=== PATIENT | male | born 1940 | race Caucasian/White ===

== ENCOUNTER 2020-08-30 14:00 | Outpatient (CLI) | payer MEDICARE, MEDICAID, SELFPAY ==
--- NOTE | 2020-08-30 16:53 | WPDPFTINT ---
PFT Procedure Performed PFT Procedure Performed Plethysmography (Lung Vol) Diffusing Cap (DLCO) Flow Vol Loop Spirometry w/o Bronchodil PFT Interpretation This is a pulmonary function test with spirometry, plethysmography and diffusing capacity. The test was performed and results interpreted in accordance with the 2019 and 2005 ATS/ERS Task Force guidelines respectively using the Global Lung Function Initiative-2012 reference equations. Patient demonstrated good effort and cooperation. Reproducibility criteria were met. The quality of the spirometry maneuver was Grade B. Findings: Spirometry: There is decreased maximal expiratory airflow at low lung volumes with a mildly concaved expiratory flow tracing. The FVC is 2.57 L, 63% predicted. The FEV1 is 1.83 L, 61% predicted. The FEV1: FVC ratio 71%. Plethysmography: The total lung capacity is 4.38 L, 61% predicted. The functional residual capacity is 2.63 L, 67% predicted. The residual volume is 1.82 L, 68% predicted. Diffusing capacity: The absolute diffusion capacity is 10.9, 44% predicted. The diffusing capacity corrected for alveolar volume is 3.20, 89% predicted. Impression: There is a combined obstructive and restrictive ventilatory abnormality. There are no guidelines to assign the severity of obstruction and restriction with a combined abnormality. In my opinion, given the mildly concave expiratory flow tracing, normal FEV1:FVC ratio and moderate restrictive abnormality, I would state there is a mild obstructive abnormality and a moderate restrictive abnormality resulting in a moderately decreased FEV1. The diffusing capacity is moderately decreased but normalizes when corrected for alveolar volume. There are no prior studies for comparison.
== END 2020-08-30 14:01 | disposition home or self-care (01) ==
PROVIDERS: PCP Family Medicine Adolescent Medicine; Visit Provider Internal Medicine Cardiovascular Disease
DX: R06.02 Shortness of breath (principal); Z72.0 Tobacco use; R94.2 Abnormal results of pulmonary function studies
CPT/HCPCS: 94375; 94726; 94729

== ENCOUNTER 2021-01-14 10:02 | Inpatient (IN) | payer MEDICARE, MEDICAID, SELFPAY ==
[2021-01-14] VITALS (21 sets, daily range): BP systolic 113–185; BP diastolic 71–133; PULSE 63–91; RESP 17–30; TEMP 36.4–36.8; O2SAT 90–98; BMI 34.7
--- NOTE | ~2021-01-14 | XR_ITS ---
EXAMINATION: XR chest 2V DATE: 01/14/2021 10:26 INDICATION: Shortness of breath and productive cough TECHNIQUE: frontal and lateral views of the chest were obtained. COMPARISON: Chest radiograph dated 06/05/2010 FINDINGS: Interstitial and airspace opacities in the bilateral mid and lower lung zones. Small left pleural eff usion. No pneumothorax. Cardiomegaly. Median sternotomy wires and mediastinal surgical clips are seen , likely from prior coronary artery bypass grafting. Moderate thoracic spondylosis. IMPRESSION: 1. Bilateral interstitial and airspace opacities in the mid to lower lungs most likely congestive hea rt failure related mild pulmonary edema. Differential includes less likely pneumonia. 2. Small left pleural effusion. 3. Cardiomegaly. Reviewed, dictated and finalized at location A. IMPRESSION: 1. Bilateral interstitial and airspace opacities in the mid to lower lungs most likely congestive heart failure related mild pulmonary edema. Differential inc ludes less likely pneumonia. 2. Small left pleural effusion. 3. Cardiomegaly.
--- NOTE | 2021-01-14 10:04 | ECG_ITS ---
Measurements Intervals [place] Rate: 76 P: 41 ME: 159 QRS: 262 QRSD: 143 T: 1 QT: 418 QTc: 471 Interpretive Statements SINUS RHYTHM ATRIAL AND VENTRICULAR PREMATURE COMPLEXES RIGHT AXIS DEVIATION RIGHT BUNDLE BRANCH BLOCK CONSIDER INFERIOR INFARCT, AGE INDETERMINATE BASELINE ARTIFACT- I, II, III, AVR, AVL, AVF, V3 ABNORMAL ECG Electronically Signed On 01-14-2021 12:15:08 CDT by Bennie Esteves D.O.
--- NOTE | 2021-01-14 10:05 | ED.SOB ---
HPI - SOB/Dyspnea General Chief Complaint: Shortness of Breath/Dyspnea Stated Complaint: SOB Time Seen by Provider: 01/14/21 10:04 Source: patient Mode of arrival: ambulatory Limitations: no limitations History of Present Illness HPI Narrative: The patient is a 80 yo male with a history of CAD, previous STEMI, 4 vessel CABG, who presents to the ER for evaluation of chest pain and dyspnea. Patient with dyspnea worsening over the course of this morning, which prompted his visit today. He denies fever, chills or productive cough. He also reports lower extremity swelling. No vomiting. The chest pain is described as a mild chest pain. Does not increase with exertional activities or movement. Pt does smoke cigarettes daily, but states that he quit yesterday. He denies any episodes of recent, severe chest pain. No diaphoresis, shoulder, jaw or neck pain. Pain has been presenting throughout the morning. No history of COVID per family at bedside. Pt denies history of COPD diagnosis. No history of asthma. Related Data Home Medications Medication Instructions Recorded Confirmed aspirin [Adult Aspirin] 81 mg PO DAILY 01/14/21 01/14/21 carvedilol 12.5 mg PO BID 01/14/21 01/14/21 [id number]-lutein 1 tablet PO DAILY 01/14/21 01/14/21 [Complete Multi 50+] omeprazole 40 mg PO DAILY 01/14/21 01/14/21 simvastatin 80 mg PO HS 01/14/21 01/14/21 Allergies Allergy/AdvReac Type Severity Reaction Status Date / Time No Known Drug Allergies Allergy Mild Verified 08/21/20 12:55 Review of Systems Review of Systems: CONSTITUTIONAL: Denies fever, chills, or sweats. EYES: Denies visual changes, redness, or discharge. ENT: Denies rhinorrhea, congestion, sore throat, or otalgia. CARDIOVASCULAR: Reports chest pain, reports lower leg edema RESPIRATORY: Denies productive cough, reports dyspnea at rest GASTROINTESTINAL: Denies abdominal pain, nausea, vomiting, or diarrhea. GENITOURINARY: Denies dysuria or hematuria. SKIN: Denies rash or itching. MUSCULOSKELETAL: Denies back pain, joint pain, or myalgia. NEUROLOGIC: Denies headache, numbness, or weakness. [facility] Family History Family History (System 08/21/20 @ 12:55 by Aster Rhodes) Mother Family history of malignant neoplasm of breast in first degree relative Father Family history of heart disease in male family member before age 55 Social History Social History (Updated 01/14/21 @ 10:59 by Anjana Stoner MD) Smoking packs per day: 1 Smoking cigarettes per day: 20.0 Years smoked: 49 Smoking pack-years: 49.00 Smoking status: Current every day smoker Tobacco type: cigarettes Second hand tobacco smoke exposure: Yes Smoking end date: 01/13/21 Alcohol intake: current Drinks per week: 7 Substance use: never Spiritual care concerns: No (ROMAN CATHOLIC) Exam Narrative: GENERAL: Awake, alert, conversant HEAD: Normocephalic, atraumatic. EYES: PERRLA and EOMI. ENT: Nares clear, no rhinorrhea or epistaxis. Mucous membranes moist. NECK: Supple. CHEST: No respiratory distress, mild use of accessory muscles to breathe, decreased breath sounds at the bases, with faint expiratory wheezing HEART: Regular rate, sinus rhythm ABDOMEN:Non distended, non tender EXTREMITIES: Normal range of motion. Bilateral pitting edema, mid shins 2+ SKIN: Warm, dry, no rash. NEURO:No focal deficits. Alert and oriented x3 Course Vital Signs Vital signs: Vital Signs Temperature 36.8 C 01/14/21 10:00 Pulse Rate 67 01/14/21 10:00 Respiratory Rate 20 01/14/21 10:00 Blood Pressure 185/102 H 01/14/21 10:00 Pulse Oximetry 96 01/14/21 10:00 Temperature 36.4 C L 01/14/21 13:20 Pulse Rate 80 01/14/21 13:20 Respiratory Rate 22 H 01/14/21 13:20 Blood Pressure 157/75 H 01/14/21 13:20 Pulse Oximetry 94 01/14/21 13:20 MDM - SOB/Dyspnea MDM Narrative Medical decision making narrative: Patient is a 80-year-old male with an extensive cardiac his
[2021-01-14 10:19] LABS: Basophils Percent Auto 0.5 % (0.2-1.2); Eosinophils Absolute Auto 0.4 K/mm3 (0-0.3); Eosinophils Percent Auto 4.9 % (0-4.4); Hemoglobin 12.8 g/dL (14.0-18.0); Immature Granulocyte Absolute 0.01 K/mm3 (0.00-0.031); Immature Granulocyte Percent A 0.1 % (0-0.5); Lymphocytes Absolute Auto 2.22 K/mm3 (0.9-3.2); Lymphocytes Percent Auto 29.4 % (18.3-44.2); Mean Corpuscular HGB Conc 33.7 g/dl (32-36); Mean Corpuscular Hemoglobin 29.7 pg (26-34); Mean Corpuscular Volume 88.2 fl (80-100); Mean Platelet Volume 10.2 fl (7.4-10.4); Monocytes Absolute Auto 0.8 K/mm3 (0.1-0.6); Monocytes Percent Auto 10.3 % (2.6-8.5); Neutrophils Absolute Auto 4.1 K/mm3 (1.3-6.7); Neutrophils Percent Auto 54.8 % (45.5-73.1); Platelet Count Result 186 k/mm3 (150-375); Red Blood Count 4.31 M/mm3 (4.6-6.20); White Blood Count 7.6 K/mm3 (4.5-10.0)
[2021-01-14 10:29] LABS: Anion Gap 7 mmol/L (8-16); Blood Urea Nitrogen 8 mg/dL (9-20); Calcium 8.4 mg/dL (8.4-10.2); Carbon Dioxide 27 mmol/L (22-30); Chloride 87 mmol/L (98-107); Estimated CRCL calculation 128 ml/min; Estimated Glomerular Filt Rate > 60; Glucose 120 mg/dL (65-110); INR 1.1; Potassium 4.6 mmol/L (3.4-5.0); Prothrombin Time 13.8 Seconds (11.1-14.7); Sodium 121 mmol/L (137-145)
[2021-01-14 10:30] LABS: Partial Thromboplastin Time 32.6 SECONDS (22.3-36.8)
[2021-01-14] MEDS: IPRATROPIUM BR 0.02% INH SOLN 0.5 MG/2.5 ML VIAL 1 MG INHALATION (11:15)
[2021-01-14] MEDS: ALBUTEROL SULFATE NEB 2.5 MG/0.5 ML INH 5 MG INHALATION ×3 (11:15→21:00)
[2021-01-14] MEDS: methylPREDNISolone SOD SUCC 125 MG VIAL IV PUSH (11:19)
[2021-01-14] MEDS: FUROSEMIDE INJ 40 MG/4 ML VIAL 20 MG IV PUSH (11:19)
--- NOTE | 2021-01-14 11:19 | PC.NURSE ---
chem, Sharon, Kam I and BNP
[2021-01-14] MEDS: SODIUM CHLORIDE 0.9% IV 1,000 ML 150 ML IV CONT (11:20)
[2021-01-14 11:41] LABS: NT Pro B Type Natriuretic Pept 2740 pg/mL (5-100); Troponin I < 0.012 ng/mL (0.000-0.034)
--- NOTE | 2021-01-14 13:24 | ADMGEN ---
This patient, Santosh Gonzalez Jr., was admitted to IMU Room 209-01 on 01/14/21 at 1320. Patient/family oriented to hospital policies and general routines including ID bracelet, bed and alarms, visiting hours, pain management, procedures, bathroom and other care routines, personal items, smoking policy, room service/diet, and visiting hours. Information on how to activate the Rapid Response Team has been discussed. Patient/Family are encouraged to report perceived risks to care and to ask questions if they do not understand what they are told or what they should do.
[2021-01-14] MEDS: IPRATROPIUM BR 0.02% INH SOLN 0.5 MG/2.5 ML VIAL INHALATION ×2 (14:16→20:59)
--- NOTE | 2021-01-14 16:06 | PM.IMHP ---
H&P: HPI History of Present Illness Date/Time: 01/14/21 16:06 this is a 80-year-old male patient who has a past medical history of coronary artery disease with a 4 vessel CABG after a STEMI. The patient is not sure if he has ever been diagnosed with congestive heart failure. He also has a history of COPD. The patient stated that he smoked a pack a cigarettes for many years and then cut it down to half a pack of cigarettes. The patient stated that he quit smoking yesterday. The patient does not wear oxygen at home. The patient came into the emergency room today to be evaluated for chest pain and dyspnea. The patient stated that his chest pain is similar to when he had his STEMI although it is much less. The patient stated that he was short of breath with exertion. He stated that he can lie flat. He had no diaphoresis or any radiation of pain to his children jaw or neck. He has no history of COVID. He has no fever chills no nausea vomiting. Chest x-ray was read as bilateral interstitial and airspace opacities in the mid to lower lungs most likely congestive heart failure related mild pulmonary edema differential includes least likely pneumonia. Small left pleural effusion. Cardiomegaly. His H&H is 12.8 and 38.0. His sodium is 121. Initially IV fluids were started and I did stop them. Patient's creatinine 0.50. His glucose was 120. His BNP is 2740. Patient was given DuoNebs, Solu-Medrol and IV Lasix. The patient is being admitted to inpatient services on the date of service of 01/14/2021. Chief Complaint: Shortness of breath Review of Systems Review of Systems: All systems reviewed & are unremarkable except as noted in HPI and below Constitutional: Constitutional: Reports as per HPI and Reports no additional constitutional complaints Eyes: Eyes: Reports as per HPI and Reports no additional eye complaints ENT: Reports system reviewed and no additional complaints, except as documented and Reports Normal hearing present Cardiovascular: Cardiovascular: Reports no additional cardiovascular complaints Respiratory: Respiratory: Reports no additional respiratory complaints and Reports no additional respiratory complaints Gastrointestinal: Gastrointestinal: Reports as per HPI and Reports no additional gastrointestinal complaints Musculoskeletal: Musculoskeletal: Reports no additional musculoskeletal complaints Integumentary/Breasts: Skin/Breast: Reports system reviewed and no additional complaints, except as docu and Reports as per HPI Neurologic: Reports system reviewed and no additional complaints, except as documented, Reports as per HPI and Reports Normal hearing present Psychiatric: Psychiatric: Reports no additional psychiatric complaints and Reports as per HPI Endocrine: Endocrine: Reports no additional endocrine complaints Hematologic/Lymphatic: Hematologic/Lymphatic: Reports no additional hematologic/lymphatic complaints Allergic/Immunologic: Allergic/Immunologic: Reports no additional allergic/immunologic complaints [facility] Past Medical History Medical History (Updated 01/14/21 @ 16:22 by Willow Perez NP) Acute exacerbation of chronic obstructive airways disease CHF (congestive heart failure), NYHA class I Depression Hyperlipidemia Hypertension Surgical History Surgical History (Updated 01/14/21 @ 16:22 by Willow Perez NP) History of tonsillectomy S/P CABG x 4 Family History Family History Mother Family history of malignant neoplasm of breast in first degree relative Father Family history of heart disease in male family member before age 55 Acute myocardial infarction Unknown Cerebrovascular accident Social History Social History (Updated 01/14/21 @ 16:23 by Willow Perez NP) Social History: The patient stated that he smoked a pack a cigarettes for many years and then he went down to half a pack. The patient stated that he quit smoki
[2021-01-14] MEDS: carvediloL 12.5 MG TABLET PO (17:20)
[2021-01-14 17:39] LABS: Troponin I < 0.012 ng/mL (0.000-0.034)
[2021-01-14 20:21] LABS: Anion Gap 10 mmol/L (8-16); Blood Urea Nitrogen 10 mg/dL (9-20); Calcium 8.3 mg/dL (8.4-10.2); Carbon Dioxide 27 mmol/L (22-30); Chloride 86 mmol/L (98-107); Estimated CRCL calculation 128 ml/min; Estimated Glomerular Filt Rate > 60; Glucose 149 mg/dL (65-110); Potassium 4.1 mmol/L (3.4-5.0); Sodium 123 mmol/L (137-145)
[2021-01-14] MEDS: SIMVASTATIN 20 MG TABLET 80 MG PO (20:29)
[2021-01-14] MEDS: methylPREDNISolone SOD SUCC 125 MG VIAL 80 MG IV PUSH (20:30)
[2021-01-14 20:33] LABS: Troponin I < 0.012 ng/mL (0.000-0.034)
[2021-01-14 23:35] LABS: Troponin I 0.013 ng/mL (0.000-0.034)
[2021-01-15] VITALS (22 sets, daily range): BP systolic 118–153; BP diastolic 62–90; PULSE 58–122; RESP 12–24; TEMP 36.4–36.8; O2SAT 88–95
--- NOTE | 2021-01-15 | ECHO_ITS ---
Patient Info Name: Santosh Gonzalez Age: 80 years : 1940 Gender: Male Ht: 71 in Wt: 248 lbs BSA: 2.41 m2 HR: 81 bpm BP: 122 / 69 mmHg Heart Rhythm: Sinus Rhythm Exam Date: 01/15/2021 10:13 AM Exam Location: [facility] Patient Status: Inpatient Admit Date: 01/14/2021 Staff Ordering Physician: Willow Perez NP Digital Camera Technician: Boone Rosas RDCS, RT Attending Provider: Viviana Foster PA-C Referring Physician: Chris CHAVEZ; Exam Type: CA echo doppler color flow Study Info Indications J81.1 - Chronic pulmonary edema Strain analysis performed. Complete two-dimensional, color flow and Doppler transthoracic echocardiogram is performed. Summary 1. Complete two-dimensional, color flow and Doppler transthoracic echocardiogram is performed. 2. Normal left ventricular size with mild concentric hypertrophy. Good systolic function of all segments with no segmental wall motion abnormalities and with an ejection fraction of 60-65% visually. Grade 2 diastolic dysfunction is present. The global longitudinal strain is mildly diminished at -16%, consistent with mild systolic dysfunction. 3. Left atrial chamber dimension is moderately enlarged. 4. Right atrial chamber dimension is mildly enlarged. 5. There is mild to moderate mitral valve regurgitation. 6. There is moderate tricuspid valve regurgitation. 7. Moderate pulmonary hypertension, estimated pulmonary arterial systolic pressure is 55 mmHg. 8. Dilated inferior vena cava with >50% collapse upon inspiration consistent with elevated right atrial pressure, 10 mmHg. 9. The rhythm is probably normal sinus rhythm with frequent APCs (versus atrial fibrillation). Left Ventricle Left ventricular chamber dimension is normal. Left ventricular systolic function is normal, estimated at 60-65%. There is mildly increased left ventricular wall thickness. Left ventricular septal wall motion is normal. The left ventricular diastolic function is grade II diastolic dysfunction. Global longitudinal strain is mildly elevated at -16 %. Right Ventricle Right ventricular chamber dimension is not well visualized. Right ventricular systolic function is normal. Left Atria Left atrial chamber dimension is moderately enlarged. Right Atria Right atrial chamber dimension is mildly enlarged. Aortic Valve The aortic valve is trileaflet. There is moderate aortic valve sclerosis. There is no aortic valve stenosis. There is no aortic valve regurgitation. Pulmonic Valve The pulmonic valve is normal. There is no pulmonic valve stenosis. There is trace pulmonic regurgitation. Mitral Valve The mitral valve has normal leaflets. There is no mitral valve stenosis. There is mild to moderate mitral valve regurgitation. The mitral valve annulus is moderately calcified. Tricuspid Valve The tricuspid valve leaflets are normal. There is no significant tricuspid valve stenosis. There is moderate tricuspid valve regurgitation. Moderate pulmonary hypertension, estimated pulmonary arterial systolic pressure is 55 mmHg. Pericardium/Pleural The pericardium appears normal. There is no pericardial effusion. Inferior Vena Cava Dilated inferior vena cava with >50% collapse upon inspiration consistent with elevated right atrial pressure, 10 mmHg. Aorta The aortic root size at the sinus of Valsalva is normal. The prox ascending aorta size is normal. Left Ventricular Outflow Tract
[2021-01-15] MEDS: ALBUTEROL SULFATE NEB 2.5 MG/0.5 ML INH 5 MG INHALATION ×4 (02:03→21:05)
[2021-01-15] MEDS: IPRATROPIUM BR 0.02% INH SOLN 0.5 MG/2.5 ML VIAL INHALATION ×4 (02:03→21:05)
[2021-01-15 05:10] LABS: Hematocrit 36.1 % (42.0-52.0); Hemoglobin 12.4 g/dL (14.0-18.0); Immature Granulocyte Absolute 0.01 K/mm3 (0.00-0.031); Immature Granulocyte Percent A 0.2 % (0-0.5); Lymphocytes Absolute Auto 1.13 K/mm3 (0.9-3.2); Lymphocytes Percent Auto 25.5 % (18.3-44.2); Mean Corpuscular HGB Conc 34.3 g/dl (32-36); Mean Corpuscular Hemoglobin 29.2 pg (26-34); Mean Corpuscular Volume 85.1 fl (80-100); Mean Platelet Volume 10.3 fl (7.4-10.4); Monocytes Absolute Auto 0.1 K/mm3 (0.1-0.6); Monocytes Percent Auto 1.4 % (2.6-8.5); Neutrophils Absolute Auto 3.2 K/mm3 (1.3-6.7); Neutrophils Percent Auto 72.9 % (45.5-73.1); Platelet Count Result 198 k/mm3 (150-375); Red Blood Count 4.24 M/mm3 (4.6-6.20); Red Cell Distribution Width 13.7 % (11.5-14.5); White Blood Count 4.4 K/mm3 (4.5-10.0)
[2021-01-15] MEDS: methylPREDNISolone SOD SUCC 125 MG VIAL 80 MG IV PUSH ×3 (05:19→21:02)
[2021-01-15 05:21] LABS: Lactic Acid Reflex 0.9 mmol/L (0.7-2.1)
[2021-01-15 05:23] LABS: Alanine Aminotransferase 21 U/L (4-50); Albumin Level 3.9 g/dL (3.5-5.1); Alkaline Phosphatase 65 U/L (38-126); Anion Gap 7 mmol/L (8-16); Aspartate Amino Transferase 39 U/L (17-59); Bilirubin,Total 0.5 mg/dL (0.2-1.3); Blood Urea Nitrogen 11 mg/dL (9-20); Calcium 8.5 mg/dL (8.4-10.2); Carbon Dioxide 29 mmol/L (22-30); Chloride 88 mmol/L (98-107); Estimated CRCL calculation 108 ml/min; Estimated Glomerular Filt Rate > 60; Glucose 149 mg/dL (65-110); Lactate Dehydrogenase 446 U/L (313-618); Lipase 46 U/L (23-300); Magnesium 1.4 mg/dL (1.6-2.3); Potassium 4.2 mmol/L (3.4-5.0); Sodium 124 mmol/L (137-145)
[2021-01-15 07:23] LABS: Thyroid Stimulating Hormone Reflex 0.245 uIU/mL (0.465-4.68)
[2021-01-15] MEDS: carvediloL 12.5 MG TABLET PO ×2 (08:07→17:09)
[2021-01-15] MEDS: PANTOPRAZOLE 40 MG TABLET PO ×2 (08:07→17:09)
[2021-01-15] MEDS: ASPIRIN 81 MG CHEWABLE TABLET PO (08:07)
[2021-01-15] MEDS: OPTI-GEN TAB 1 TABLET PO (08:07)
[2021-01-15] MEDS: ENOXAPARIN 40 MG/0.4 ML SYRINGE SUB-Q (08:10)
[2021-01-15] MEDS: FUROSEMIDE INJ 40 MG/4 ML VIAL IV PUSH (08:13)
[2021-01-15] MEDS: MAGNESIUM SULFATE 3GM/D5W100ML 3 GM/100 ML BAG IVPB (10:33)
[2021-01-15 12:25] LABS: Sodium 124 mmol/L (137-145)
[2021-01-15 13:00] LABS: Free T4 Free Thyroxine Reflex 1.48 ng/dL (0.78-2.19)
--- NOTE | 2021-01-15 16:27 | PM.IMPN ---
Progress Note: A&P Assessment and Plan (1) CHF (congestive heart failure), NYHA class I: Code(s): I50.9 - Heart failure, unspecified Status: Chronic Assessment and Plan: Presented with bilateral interstitial airspace a paced these most likely due to CHF with mild pulmonary edema and small left pleural effusion. BNP 2700 Echo reviewed which showed EF 60-65% and grade 2 diastolic dysfunction Continue diuresis with IV Lasix Monitor intake and output. Weigh daily Heart healthy diet Continue carvedilol Cardiology has been consulted and input is appreciated (2) Acute exacerbation of chronic obstructive airways disease: Code(s): J44.1 - Chronic obstructive pulmonary disease with (acute) exacerbation Status: Chronic Assessment and Plan: Noted to have diffuse wheezing on admission. Improving today. Continue IV Solu-Medrol Albuterol and ipratropium nebs q.6 Do not feel antibiotics are warranted at this time. No significant sputum changes. (3) Hyperlipidemia: Code(s): E78.5 - Hyperlipidemia, unspecified Status: Chronic Assessment and Plan: LFTs within normal limits Continue simvastatin (4) Hypertension: Code(s): I10 - Essential (primary) hypertension Status: Chronic Assessment and Plan: Blood pressure reviewed and has been generally well controlled. Slightly elevated on presentation but has improved with diuresis. Last BP 118/63 Continue carvedilol and furosemide Monitor BP trends (5) Acute hyponatremia: Code(s): E87.1 - Hypo-osmolality and hyponatremia Status: Acute Assessment and Plan: Sodium low at presentation at 121. Maybe due to hypervolemia. Sodium has slowly improved with fluid restriction and diuresis. Sodium remaining stable at 124 today Monitor BMP closely Continue with fluid restriction (6) Coronary artery disease: Code(s): I25.10 - Atherosclerotic heart disease of [place] coronary artery without angina pectoris Status: Acute Assessment and Plan: No acute issues at this time Continue aspirin, carvedilol, statin (7) Hypomagnesemia: Code(s): E83.42 - Hypomagnesemia Status: Acute Assessment and Plan: Magnesium 1.4 today Supplement with IV magnesium sulfate Monitor Mag levels (8) Abnormal TSH: Code(s): R79.89 - Other specified abnormal findings of blood chemistry Status: Acute Assessment and Plan: TSH is slightly low with normal T4 T3 pending He will need outpatient follow-up and repeat TSH in 4-6 weeks Subjective Date/time seen: 01/15/21 16:27 Interval history: Date of service: 01/15/2021 Santosh Zhu is a 80-year-old male with a history of COPD, CHF, hyperlipidemia, hypertension, and depression who is seen in follow-up for dyspnea. He is feeling better today. He feels that his breathing is improved. He does endorse dyspnea on exertion. Denies conversational dyspnea. Denies orthopnea or PND. He has cough productive of white sputum with occasional reddish/pink streaks of blood. He denies wheezing. Denies chest pain. No palpitations. He stated this morning he felt like he had a panic attack and began feeling clammy and had trouble breathing. He is unsure what triggered this episode. He reports having 1 like this at home about 2 days ago as well. He tells me has been urinating frequently after starting Lasix. He also complains of pain in the left hip that he describes as a aching sensation. He attributes this to sciatica but denies back pain, buttock pain, or leg pain. No neuropathic pain symptoms. He denies fever, chills, dizziness, lightheadedness, or weakness. Review of Systems Review of Systems: All systems reviewed & are unremarkable except as noted in HPI and below Exam Narrative: The patient is a well-nourished, well-appearing 80-year-old male who is sitting up at the
--- NOTE | 2021-01-15 16:35 | PM.CNCAR ---
Assessment and Plan Assessment and plan (1) CHF (congestive heart failure), NYHA class I: Code(s): I50.9 - Heart failure, unspecified Status: Chronic Assessment and Plan: Patient has developed acute new onset diastolic heart failure, new onset. Doubt caused by ischemia or valve disease. He states he has been prescribed furosemide prn but the urinary frequency was intolerable so he stopped taking them. He feels improved with IV furosemide 40 mg daily. Echo EF 60-65% with diastolic dysfxn and mild/mod valve dz. Continue to diurese. Daily BMP When we send him home on diuretics perhaps we can compromise and have him take them every other day instead of daily. OK to transfer to Med-Surg floor (2) Acute exacerbation of chronic obstructive airways disease: Code(s): J44.1 - Chronic obstructive pulmonary disease with (acute) exacerbation Status: Chronic Assessment and Plan: Acute COPD exacerbation. Improving with nebulizers and steroids. Patient states he has decided to quit smoking completely. (3) Coronary artery disease: Code(s): I25.10 - Atherosclerotic heart disease of [place] coronary artery without angina pectoris Status: Acute Assessment and Plan: History of CAD, CABG 2009. Has some chest tightness on admission but Troponins negative, EKG without ischemic changes and no change c.t. 2015. Chest tightness was probably related to his wheezing and COPD. No need to evaluate CAD further at this time. Cont ASA, statin, BB. (4) Acute hyponatremia: Code(s): E87.1 - Hypo-osmolality and hyponatremia Status: Acute Assessment and Plan: Sodium 121 on admission, improving w/ diuretic tx. History of Present Illness History of Present Illness Consult date/time: 01/15/21 16:35 Consult reason: congestive heart failure Reason For Visit: hyponatremia,acute congestive heart failure Narrative: Santosh Freiberg is a 80 y.o. male kindly referred by the hospitalists for our advise and opinion regarding his CHF in consultation. History of CAD, previous STEMI, 3 vessel CABG, ongoing tobacco use. Date of service 01/15/2021: Mr Gonzalez presented to the ER for evaluation of chest pain and dyspnea. Patient with dyspnea worsening in the past 4 days, particularly the 2 days prior to admission. He had a cough and congestion, nocturia, and was feeling ?yudi lousy? and was scared. Chest discomfort/tightness was present, but not a big part of his symptomatology. He gained 5 lb, and had some edema. He admits that he did not take his furosemide 20 mg prn for edema; he is ?hard headed,? and they cause too much urinary frequency. The patient had a non-STEMI in 2009 followed by 3 vessel CABG in [facility] (RUFF to the Left anterior descending, SVG to the OM, SVG to the RCA ). At that time his EF was 30% but has normalized. He sees Dr. Avalos every 6 months with the next visit being in early January. He quit smoking just prior to admission. Review of Systems Constitutional: Constitutional: Reports fatigue Eyes: Eyes: Reports no additional eye complaints ENT: Denies Normal hearing present ( I am half deaf. ) Cardiovascular: Cardiovascular: Reports chest pain, Reports pedal edema, Reports leg edema, Reports lightheadedness and Denies palpitations Respiratory: Respiratory: Reports chest congestion, Reports cough, Reports dyspnea, Reports dyspnea on exertion and Reports wheezing Gastrointestinal: Gastrointestinal: Denies abdominal pain Genitourinary: Genitourinary: Denies dysuria and Reports urinary urgency (In frequency, nocturia) Musculoskeletal: Musculoskeletal: Reports back pain and Reports arthralgias Comments: Sciatica Integumentary/Breasts: Skin/Breast: Denies rash Neurologic: Denies confusion Psychiatric: Psychiatric: Reports no additional
--- NOTE | 2021-01-15 17:37 | PC.NURSE ---
On 01/15/21, the student, Stella FREIRE, provided care and completed [email or web address] documentation on this patient. I have reviewed the student's documentation and agree with the findings.
[2021-01-15] MEDS: SIMVASTATIN 20 MG TABLET 80 MG PO (21:02)
[2021-01-15 21:11] LABS: Sodium 125 mmol/L (137-145)
[2021-01-16] VITALS (13 sets, daily range): BP systolic 132–151; BP diastolic 70–107; PULSE 52–117; RESP 16–28; TEMP 36.5–37.1; O2SAT 90–94
[2021-01-16] MEDS: ALBUTEROL SULFATE NEB 2.5 MG/0.5 ML INH 5 MG INHALATION ×4 (02:43→21:02)
[2021-01-16] MEDS: IPRATROPIUM BR 0.02% INH SOLN 0.5 MG/2.5 ML VIAL INHALATION ×4 (02:44→21:02)
[2021-01-16 05:15] LABS: Hematocrit 37.2 % (42.0-52.0); Hemoglobin 12.2 g/dL (14.0-18.0); Mean Corpuscular HGB Conc 32.8 g/dl (32-36); Mean Corpuscular Hemoglobin 29.3 pg (26-34); Mean Corpuscular Volume 89.2 fl (80-100); Mean Platelet Volume 10.2 fl (7.4-10.4); Platelet Count Result 186 k/mm3 (150-375); Red Blood Count 4.17 M/mm3 (4.6-6.20); Red Cell Distribution Width 14.1 % (11.5-14.5); White Blood Count 8.5 K/mm3 (4.5-10.0)
[2021-01-16 05:24] LABS: Anion Gap 4 mmol/L (8-16); Blood Urea Nitrogen 16 mg/dL (9-20); Calcium 8.3 mg/dL (8.4-10.2); Carbon Dioxide 31 mmol/L (22-30); Chloride 90 mmol/L (98-107); Estimated CRCL calculation 94 ml/min; Estimated Glomerular Filt Rate > 60; Glucose 204 mg/dL (65-110); Magnesium 2.1 mg/dL (1.6-2.3); Potassium 4.3 mmol/L (3.4-5.0); Sodium 125 mmol/L (137-145)
[2021-01-16] MEDS: methylPREDNISolone SOD SUCC 125 MG VIAL 80 MG IV PUSH (06:19)
[2021-01-16 07:36] LABS: Total Triiodothyronine (T3) 0.68 NG/ML (0.97-1.69)
[2021-01-16] MEDS: carvediloL 12.5 MG TABLET PO ×2 (09:27→17:13)
[2021-01-16] MEDS: ENOXAPARIN 40 MG/0.4 ML SYRINGE SUB-Q (09:27)
[2021-01-16] MEDS: ASPIRIN 81 MG CHEWABLE TABLET PO (09:27)
[2021-01-16] MEDS: FUROSEMIDE INJ 40 MG/4 ML VIAL IV PUSH (09:27)
[2021-01-16] MEDS: PANTOPRAZOLE 40 MG TABLET PO ×2 (09:27→17:14)
[2021-01-16] MEDS: OPTI-GEN TAB 1 TABLET PO (09:28)
--- NOTE | 2021-01-16 12:52 | PM.PNCARD ---
Progress Note: A&P Assessment and Plan (1) CHF (congestive heart failure), NYHA class I: Code(s): I50.9 - Heart failure, unspecified Status: Chronic Assessment and Plan: Patient has developed acute new onset diastolic heart failure, new onset. Doubt caused by ischemia or valve disease. He states he has been prescribed furosemide prn but the urinary frequency was intolerable so he stopped taking them. Breathing and lower extremity edema have improved with IV furosemide. Continue to diurese -will shift from IV furosemide to oral today. Echo EF 60-65% with diastolic dysfxn and mild/mod valve dz. Daily BMP When we send him home on diuretics perhaps we can compromise and have him take them every other day instead of daily. OK to transfer to Med-Surg floor (2) Acute exacerbation of chronic obstructive airways disease: Code(s): J44.1 - Chronic obstructive pulmonary disease with (acute) exacerbation Status: Chronic Assessment and Plan: Acute COPD exacerbation. Improving with nebulizers and steroids. Patient states he has decided to quit smoking completely. (3) Coronary artery disease: Code(s): I25.10 - Atherosclerotic heart disease of [place] coronary artery without angina pectoris Status: Acute Assessment and Plan: History of CAD, CABG 2009. Has some chest tightness on admission but Troponins negative, EKG without ischemic changes and no change c.t. 2015. Chest tightness was probably related to his wheezing and COPD. No need to evaluate CAD further at this time. Cont ASA, statin, BB. (4) Acute hyponatremia: Code(s): E87.1 - Hypo-osmolality and hyponatremia Status: Acute Assessment and Plan: Sodium 121 on admission, improving w/ diuretic tx. Na 125 today. Subjective Date/time seen: 01/16/21 12:52 Cardiology follow up for CHF Date of service 01/16/2021: Complaining of some sciatic pain today. Other than that is feeling well. His breathing is much improved as well as his lower extremity swelling. He is sitting up at the edge of the bed getting washed up and is comfortable. I think it would be reasonable to discharge him tomorrow if he tolerates oral diuretics. Review of Systems Constitutional: Constitutional: Reports fatigue Eyes: Eyes: Reports no additional eye complaints ENT: Denies Normal hearing present ( I am half deaf. ) Cardiovascular: Cardiovascular: Reports chest pain, Reports pedal edema, Reports leg edema, Reports lightheadedness, Denies palpitations, Reports dyspnea and Reports dyspnea on exertion Respiratory: Respiratory: Reports chest congestion, Reports cough, Reports dyspnea, Reports dyspnea on exertion and Reports wheezing Gastrointestinal: Gastrointestinal: Denies abdominal pain Genitourinary: Genitourinary: Denies dysuria and Reports urinary urgency (In frequency, nocturia) Musculoskeletal: Musculoskeletal: Reports back pain and Reports arthralgias Integumentary/Breasts: Skin/Breast: Denies rash Neurologic: Denies Normal hearing present ( I am half deaf. ) and Denies confusion Psychiatric: Psychiatric: Reports no additional psychiatric complaints and Denies confusion Endocrine: Endocrine: Reports fatigue and Denies palpitations Allergic/Immunologic: Allergic/Immunologic: Reports wheezing Exam Const: General: comfortable and no acute distress; No confusion Orientation/consciousness: No confusion HENMT: Head: normal to inspection General nose exam: no epistaxis Mouth: Yes moist mucous membranes Eyes: EOM: EOMs intact bilaterally Neck: Neck: supple Thyroid: thyroid normal Resp: Auscultation: no rales, rhonchi and wheezes expiratory wheezes Cardio: Rate: regular rate Rhythm: regular rhythm Other: Occasional premature beat intact distal pulses Skin: General skin exam: normal color
--- NOTE | 2021-01-16 14:55 | P.PNIM_ITS ---
Progress Note: A&P Assessment and Plan (1) CHF (congestive heart failure), NYHA class I: Code(s): I50.9 - Heart failure, unspecified Status: Chronic Assessment and Plan: New onset. Presented with bilateral interstitial airspace opacities most likely due to CHF with mild pulmonary edema and small left pleural effusion. BNP 2700 * Echo reviewed which showed EF 60-65% and grade 2 diastolic dysfunction * Continue diuresis, transition to p.o. Lasix 40 mg b.i.d. * Monitor intake and output. Weigh daily * Heart healthy diet * Continue carvedilol * Appreciate cardiology consultation (2) Acute exacerbation of chronic obstructive airways disease: Code(s): J44.1 - Chronic obstructive pulmonary disease with (acute) exacerbation Status: Chronic Assessment and Plan: Noted to have diffuse wheezing on admission. Improving. * Continue IV Solu-Medrol, weaned to 40 mg IV q.8 * Albuterol and ipratropium nebs q.6 * Do not feel antibiotics are warranted at this time. No significant sputum changes. (3) Hyperlipidemia: Code(s): E78.5 - Hyperlipidemia, unspecified Status: Chronic Assessment and Plan: LFTs within normal limits * Continue simvastatin (4) Hypertension: Code(s): I10 - Essential (primary) hypertension Status: Chronic Assessment and Plan: Blood pressure reviewed and has been generally well controlled. Slightly elevated on presentation but has improved with diuresis. Last BP 149/78 * Continue carvedilol and furosemide * Monitor BP trends (5) Acute hyponatremia: Code(s): E87.1 - Hypo-osmolality and hyponatremia Status: Acute Assessment and Plan: Sodium low at presentation at 121. Likely hypervolemic hyponatremia. * Slowly improving with fluid restriction and diuresis. * Sodium remaining stable at 125 today * Monitor BMP closely * Continue with fluid restriction (6) Coronary artery disease: Code(s): I25.10 - Atherosclerotic heart disease of [place] coronary artery without angina pectoris Status: Acute Assessment and Plan: No acute issues at this time * Continue aspirin, carvedilol, statin (7) Hypomagnesemia: Code(s): E83.42 - Hypomagnesemia Status: Acute Assessment and Plan: Resolved with supplementation. Magnesium 2.1 today (8) Abnormal TSH: Code(s): R79.89 - Other specified abnormal findings of blood chemistry Status: Acute Assessment and Plan: TSH is slightly low with normal T4 and low T3 * He will need outpatient follow-up and repeat TSH in 4-6 weeks (9) History of tobacco abuse: Code(s): Z87.891 - Personal history of nicotine dependence Status: Acute Assessment and Plan: Reports history of smoking 0.5-1 pack per day for 50 years. * He states that his last cigarette was 4 days ago. He intends to quit smoking permanently * Continue to reinforce tobacco cessation Additional Plan Patient has been downgraded to med surg floor. No need for telemetry monitoring. Subjective Date/time seen: 01/16/21 14:55 Interval history: Date of service: 01/16/2021 Santosh Zhu is a 80-year-old male with a history of COPD, CHF, hyperlipidemia, hypertension, and depression who is seen in follow-up for CHF exacerbation. He is feeling better today. His shortness of breath has improved. He is still urinating frequently. He feels that his lower extremity edema
--- NOTE | 2021-01-16 14:55 | PM.IMPN ---
Progress Note: A&P Assessment and Plan (1) CHF (congestive heart failure), NYHA class I: Code(s): I50.9 - Heart failure, unspecified Status: Chronic Assessment and Plan: New onset. Presented with bilateral interstitial airspace opacities most likely due to CHF with mild pulmonary edema and small left pleural effusion. BNP 2700 Echo reviewed which showed EF 60-65% and grade 2 diastolic dysfunction Continue diuresis, transition to p.o. Lasix 40 mg b.i.d. Monitor intake and output. Weigh daily Heart healthy diet Continue carvedilol Appreciate cardiology consultation (2) Acute exacerbation of chronic obstructive airways disease: Code(s): J44.1 - Chronic obstructive pulmonary disease with (acute) exacerbation Status: Chronic Assessment and Plan: Noted to have diffuse wheezing on admission. Improving. Continue IV Solu-Medrol, weaned to 40 mg IV q.8 Albuterol and ipratropium nebs q.6 Do not feel antibiotics are warranted at this time. No significant sputum changes. (3) Hyperlipidemia: Code(s): E78.5 - Hyperlipidemia, unspecified Status: Chronic Assessment and Plan: LFTs within normal limits Continue simvastatin (4) Hypertension: Code(s): I10 - Essential (primary) hypertension Status: Chronic Assessment and Plan: Blood pressure reviewed and has been generally well controlled. Slightly elevated on presentation but has improved with diuresis. Last BP 149/78 Continue carvedilol and furosemide Monitor BP trends (5) Acute hyponatremia: Code(s): E87.1 - Hypo-osmolality and hyponatremia Status: Acute Assessment and Plan: Sodium low at presentation at 121. Likely hypervolemic hyponatremia. Slowly improving with fluid restriction and diuresis. Sodium remaining stable at 125 today Monitor BMP closely Continue with fluid restriction (6) Coronary artery disease: Code(s): I25.10 - Atherosclerotic heart disease of [place] coronary artery without angina pectoris Status: Acute Assessment and Plan: No acute issues at this time Continue aspirin, carvedilol, statin (7) Hypomagnesemia: Code(s): E83.42 - Hypomagnesemia Status: Acute Assessment and Plan: Resolved with supplementation. Magnesium 2.1 today (8) Abnormal TSH: Code(s): R79.89 - Other specified abnormal findings of blood chemistry Status: Acute Assessment and Plan: TSH is slightly low with normal T4 and low T3 He will need outpatient follow-up and repeat TSH in 4-6 weeks (9) History of tobacco abuse: Code(s): Z87.891 - Personal history of nicotine dependence Status: Acute Assessment and Plan: Reports history of smoking 0.5-1 pack per day for 50 years. He states that his last cigarette was 4 days ago. He intends to quit smoking permanently Continue to reinforce tobacco cessation Additional Plan Patient has been downgraded to med surg floor. No need for telemetry monitoring. Subjective Date/time seen: 01/16/21 14:55 Interval history: Date of service: 01/16/2021 Santosh Zhu is a 80-year-old male with a history of COPD, CHF, hyperlipidemia, hypertension, and depression who is seen in follow-up for CHF exacerbation. He is feeling better today. His shortness of breath has improved. He is still urinating frequently. He feels that his lower extremity edema has improved somewhat. He continues to endorse dyspnea on exertion. Denies orthopnea or PND. He endorsed wheezing this morning but feels that it has improved significantly with nebulized breathing treatments. He has been coughing and endorses whitish brown sputum. He denies fever, chills, nausea, vomiting, dizziness, or lightheadedness. He denies chest pain or palpitations. No additional concerns at this time. Appetite is good. Review of Systems Review of Systems: All system
[2021-01-16] MEDS: FUROSEMIDE 40 MG TABLET PO (17:13)
--- NOTE | 2021-01-16 18:51 | PC.NURSE ---
This patient, [facility]osh Gonzalez Jr., [facility] Personal belongings sent with patient. Report given to MATTHEW Elkins. Appropriate documentation sent with patient.
[2021-01-16] MEDS: SIMVASTATIN 20 MG TABLET 80 MG PO (20:19)
[2021-01-16] MEDS: methylPREDNISolone SOD SUCC 40 MG VIAL IV PUSH (21:08)
[2021-01-17] VITALS (8 sets, daily range): BP systolic 140; BP diastolic 70; PULSE 56–76; RESP 16–20; TEMP 36.5; O2SAT 93
[2021-01-17] MEDS: IPRATROPIUM BR 0.02% INH SOLN 0.5 MG/2.5 ML VIAL INHALATION ×3 (03:29→13:40)
[2021-01-17] MEDS: ALBUTEROL SULFATE NEB 2.5 MG/0.5 ML INH 5 MG INHALATION ×3 (03:29→13:40)
[2021-01-17] MEDS: methylPREDNISolone SOD SUCC 40 MG VIAL IV PUSH ×2 (05:05→13:32)
[2021-01-17 06:34] LABS: Anion Gap 6 mmol/L (8-16); Blood Urea Nitrogen 24 mg/dL (9-20); Calcium 8.5 mg/dL (8.4-10.2); Carbon Dioxide 33 mmol/L (22-30); Chloride 91 mmol/L (98-107); Estimated CRCL calculation 94 ml/min; Estimated Glomerular Filt Rate > 60; Glucose 180 mg/dL (65-110); Magnesium 1.9 mg/dL (1.6-2.3); Potassium 4.3 mmol/L (3.4-5.0); Sodium 130 mmol/L (137-145)
[2021-01-17] MEDS: carvediloL 12.5 MG TABLET PO (08:38)
[2021-01-17] MEDS: ASPIRIN 81 MG CHEWABLE TABLET PO (08:38)
[2021-01-17] MEDS: OPTI-GEN TAB 1 TABLET PO (08:38)
[2021-01-17] MEDS: PANTOPRAZOLE 40 MG TABLET PO (08:38)
[2021-01-17] MEDS: FUROSEMIDE 40 MG TABLET PO (08:38)
[2021-01-17] MEDS: ENOXAPARIN 40 MG/0.4 ML SYRINGE SUB-Q (08:38)
[2021-01-17 14:02] LABS: Hematocrit 39.5 % (42.0-52.0); Hemoglobin 12.7 g/dL (14.0-18.0)
--- NOTE | 2021-01-17 14:10 | P.DS_ITS ---
DS: Admitting Diagnosis Discharge Date date of service 01/17/2021 at 11:15 a.m. Admitting Diagnosis new onset congestive heart failure/ acute exacerbation of COPD DS: Discharge Diagnosis Discharge Diagnosis (1) CHF (congestive heart failure), NYHA class I: Code(s): I50.9 - Heart failure, unspecified Status: Chronic Assessment and Plan: New onset. Presented with bilateral interstitial airspace opacities most likely due to CHF with mild pulmonary edema and small left pleural effusion. BNP 2700 * Echo reviewed which showed EF 60-65% and grade 2 diastolic dysfunction * Continue diuresis, transition to p.o. Lasix 40 mg b.i.d. * Monitor intake and output. Weigh daily * Heart healthy diet * Continue carvedilol * Appreciate cardiology consultation (2) Acute exacerbation of chronic obstructive airways disease: Code(s): J44.1 - Chronic obstructive pulmonary disease with (acute) exacerbation Status: Chronic Assessment and Plan: Noted to have diffuse wheezing on admission. Improving. * Continue IV Solu-Medrol, weaned to 40 mg IV q.8 * Albuterol and ipratropium nebs q.6 * Do not feel antibiotics are warranted at this time. * patient admits to have an increased sputum production will start patient on Anoro Ellipta and albuterol inhalers patient will need to follow up with pulmonology within the month (3) Hyperlipidemia: Code(s): E78.5 - Hyperlipidemia, unspecified Status: Chronic Assessment and Plan: LFTs within normal limits * Continue simvastatin (4) Hypertension: Code(s): I10 - Essential (primary) hypertension Status: Chronic Assessment and Plan: Blood pressure reviewed and has been generally well controlled. Slightly elevated on presentation but has improved with diuresis. Last BP 149/78 * Continue carvedilol and furosemide * Monitor BP trends (5) Acute hyponatremia: Code(s): E87.1 - Hypo-osmolality and hyponatremia Status: Acute Assessment and Plan: Sodium low at presentation at 121. Likely hypervolemic hyponatremia. * Slowly improving with fluid restriction and diuresis. * Sodium remaining stable at 130 today * Monitor BMP closely * Continue with fluid restriction (6) Coronary artery disease: Code(s): I25.10 - Atherosclerotic heart disease of [place] coronary artery without angina pectoris Status: Acute Assessment and Plan: No acute issues at this time * Continue aspirin, carvedilol, statin (7) Hypomagnesemia: Code(s): E83.42 - Hypomagnesemia Status: Acute Assessment and Plan: Resolved with supplementation. Magnesium 2.1 today (8) Abnormal TSH: Code(s): R79.89 - Other specified abnormal findings of blood chemistry Status: Acute Assessment and Plan: TSH is slightly low with normal T4 and low T3 * He will need outpatient follow-up and repeat TSH in 4-6 weeks (9) History of tobacco abuse: Code(s): Z87.891 - Personal history of nicotine dependence Status: Acute Assessment and Plan: Reports history of smoking 0.5-1 pack per day for 50 years. * He states that his last cigarette was 4 days ago. He intends to quit smoking permanently * Continue to reinforce tobacco cessation DS: Summary Hospital Course Hospital Course: patient is a 80-year-old male with a past medical history of tobacco abuse, HLD, and GERD who presented to the ED with complai
--- NOTE | 2021-01-17 14:10 | PM.DS ---
DS: Admitting Diagnosis Discharge Date date of service 01/17/2021 at 11:15 a.m. Admitting Diagnosis new onset congestive heart failure/ acute exacerbation of COPD DS: Discharge Diagnosis Discharge Diagnosis (1) CHF (congestive heart failure), NYHA class I: Code(s): I50.9 - Heart failure, unspecified Status: Chronic Assessment and Plan: New onset. Presented with bilateral interstitial airspace opacities most likely due to CHF with mild pulmonary edema and small left pleural effusion. BNP 2700 Echo reviewed which showed EF 60-65% and grade 2 diastolic dysfunction Continue diuresis, transition to p.o. Lasix 40 mg b.i.d. Monitor intake and output. Weigh daily Heart healthy diet Continue carvedilol Appreciate cardiology consultation (2) Acute exacerbation of chronic obstructive airways disease: Code(s): J44.1 - Chronic obstructive pulmonary disease with (acute) exacerbation Status: Chronic Assessment and Plan: Noted to have diffuse wheezing on admission. Improving. Continue IV Solu-Medrol, weaned to 40 mg IV q.8 Albuterol and ipratropium nebs q.6 Do not feel antibiotics are warranted at this time. patient admits to have an increased sputum production will start patient on Anoro Ellipta and albuterol inhalers patient will need to follow up with pulmonology within the month (3) Hyperlipidemia: Code(s): E78.5 - Hyperlipidemia, unspecified Status: Chronic Assessment and Plan: LFTs within normal limits Continue simvastatin (4) Hypertension: Code(s): I10 - Essential (primary) hypertension Status: Chronic Assessment and Plan: Blood pressure reviewed and has been generally well controlled. Slightly elevated on presentation but has improved with diuresis. Last BP 149/78 Continue carvedilol and furosemide Monitor BP trends (5) Acute hyponatremia: Code(s): E87.1 - Hypo-osmolality and hyponatremia Status: Acute Assessment and Plan: Sodium low at presentation at 121. Likely hypervolemic hyponatremia. Slowly improving with fluid restriction and diuresis. Sodium remaining stable at 130 today Monitor BMP closely Continue with fluid restriction (6) Coronary artery disease: Code(s): I25.10 - Atherosclerotic heart disease of [place] coronary artery without angina pectoris Status: Acute Assessment and Plan: No acute issues at this time Continue aspirin, carvedilol, statin (7) Hypomagnesemia: Code(s): E83.42 - Hypomagnesemia Status: Acute Assessment and Plan: Resolved with supplementation. Magnesium 2.1 today (8) Abnormal TSH: Code(s): R79.89 - Other specified abnormal findings of blood chemistry Status: Acute Assessment and Plan: TSH is slightly low with normal T4 and low T3 He will need outpatient follow-up and repeat TSH in 4-6 weeks (9) History of tobacco abuse: Code(s): Z87.891 - Personal history of nicotine dependence Status: Acute Assessment and Plan: Reports history of smoking 0.5-1 pack per day for 50 years. He states that his last cigarette was 4 days ago. He intends to quit smoking permanently Continue to reinforce tobacco cessation DS: Summary Hospital Course Hospital Course: patient is a 80-year-old male with a past medical history of tobacco abuse, HLD, and GERD who presented to the ED with complaints of chest pain and dyspnea. Patient was treated with IV Lasix. Patient was also treated with IV steroids and nebs. He did state that he is feeling better today and is eager to get home. He does have some PFTs on file from August. With the increase of sputum, wheezes, shortness of breath and response to steroids/ neb treatments patient might need to have his PFTs repeated. Patient also saw Cardiology who has been following along case. Today patient reports feeling better he stated h
--- NOTE | 2021-01-17 14:12 | PM.PNCARD ---
Progress Note: A&P Assessment and Plan (1) CHF (congestive heart failure), NYHA class I: Code(s): I50.9 - Heart failure, unspecified Status: Chronic Assessment and Plan: Patient has developed acute new onset diastolic heart failure, new onset. Doubt caused by ischemia or valve disease. He states he has been prescribed furosemide prn but the urinary frequency was intolerable so he stopped taking them. Breathing and lower extremity edema improved with IV furosemide - now on oral furosemide. Echo EF 60-65% with diastolic dysfxn and mild/mod valve dz. Stable for discharge from a cardiac perspective (2) Acute exacerbation of chronic obstructive airways disease: Code(s): J44.1 - Chronic obstructive pulmonary disease with (acute) exacerbation Status: Chronic Assessment and Plan: Acute COPD exacerbation. Improving with nebulizers and steroids. Patient states he has decided to quit smoking completely. (3) Coronary artery disease: Code(s): I25.10 - Atherosclerotic heart disease of [place] coronary artery without angina pectoris Status: Acute Assessment and Plan: History of CAD, CABG 2009. Has some chest tightness on admission but Troponins negative, EKG without ischemic changes and no change c.t. 2015. Chest tightness was probably related to his wheezing and COPD. No need to evaluate CAD further at this time. Cont ASA, statin, BB. (4) Acute hyponatremia: Code(s): E87.1 - Hypo-osmolality and hyponatremia Status: Acute Assessment and Plan: Sodium 121 on admission, improving w/ diuretic tx. Na 130 today Subjective Date/time seen: 01/17/21 14:12 Interval history: Date of service: 01/16/2021: Feeling well today. No LE edema, breathing is better but still has c/o productive cough. He is eager to go home. OK from a cardiac perspective. He tells me he already has an appointment with Dr. Avalos scheduled for next week that he would like to keep. Review of Systems Constitutional: Constitutional: Reports fatigue Eyes: Eyes: Reports no additional eye complaints ENT: Denies Normal hearing present Cardiovascular: Cardiovascular: Reports chest pain, Reports pedal edema, Reports leg edema, Reports lightheadedness, Denies palpitations, Reports dyspnea and Reports dyspnea on exertion Respiratory: Respiratory: Reports chest congestion, Reports cough, Reports dyspnea, Reports dyspnea on exertion and Reports wheezing Gastrointestinal: Gastrointestinal: Denies abdominal pain Genitourinary: Genitourinary: Denies dysuria and Reports urinary urgency (In frequency, nocturia) Musculoskeletal: Musculoskeletal: Reports back pain and Reports arthralgias Integumentary/Breasts: Skin/Breast: Denies rash Neurologic: Denies Normal hearing present and Denies confusion Psychiatric: Psychiatric: Reports no additional psychiatric complaints and Denies confusion Endocrine: Endocrine: Reports fatigue and Denies palpitations Allergic/Immunologic: Allergic/Immunologic: Reports wheezing Exam Const: General: comfortable and no acute distress; No confusion Orientation/consciousness: No confusion HENMT: Head: normal to inspection General nose exam: no epistaxis Mouth: Yes moist mucous membranes Eyes: EOM: EOMs intact bilaterally Neck: Neck: supple Thyroid: thyroid normal Resp: Auscultation: no rales, rhonchi and wheezes expiratory wheezes Cardio: Rate: regular rate Rhythm: regular rhythm Other: Occasional premature beat intact distal pulses Skin: General skin exam: normal color and no rashes or lesions noted Neuro: General: No confusion Cranial nerves: No Normal hearing present and Yes hard of hearing Cognition (Neuro): normal cognition Speech: normal speech Motor exam (neuro): Normal motor muscle tone present throughout Extrem: General: no
== END 2021-01-17 15:45 | disposition home or self-care (01) | DRG 291 ==
LOC: ANHED 11:51 → ANHIMU 12:42 → ANH3MED 01-16 17:32
PROVIDERS: Nurse Practitioner; Admitting Provider Internal Medicine; Emergency Provider Emergency Medicine; PCP Family Medicine Adolescent Medicine; Visit Provider Physician Assistant
DX: I11.0 Hypertensive heart disease with heart failure (principal); I50.31 Acute diastolic (congestive) heart failure; E87.1 Hypo-osmolality and hyponatremia; J44.1 Chronic obstructive pulmonary disease with (acute) exacerbation; I50.9 Heart failure, unspecified; E78.5 Hyperlipidemia, unspecified; I25.10 Atherosclerotic heart disease of native coronary artery without angina pectoris; F17.210 Nicotine dependence, cigarettes, uncomplicated; E83.42 Hypomagnesemia; R79.89 Other specified abnormal findings of blood chemistry; F32.A Depression, unspecified; I25.2 Old myocardial infarction; Z95.1 Presence of aortocoronary bypass graft; Z79.82 Long term (current) use of aspirin; Z79.899 Other long term (current) drug therapy
CPT/HCPCS: 36415; 71046; 80048; 80053; 83605; 83615; 83690; 83735; 83880; 84295; 84439; 84443; 84480; 84484; 85014; 85018; 85025; 85027; 85610; 85730; 93005; 93306; 94640; 96374; 96375; 99285; A9270; J1650; J1940; J2920; J2930; J3475; J7030

== ENCOUNTER 2021-05-11 15:22 | Inpatient (IN) | payer OTHER, SELFPAY ==
[2021-05-11] VITALS (15 sets, daily range): BP systolic 90–111; BP diastolic 53–85; PULSE 78–89; RESP 16–26; TEMP 35.8; O2SAT 81–96
--- NOTE | ~2021-05-11 | XR_ITS ---
EXAMINATION: XR abdomen/kub 1V DATE: 05/15/2021 08:24 INDICATION: Adynamic ileus. TECHNIQUE: A supine view of the abdomen was obtained. COMPARISON: CT abdomen and pelvis 05/11/2021 FINDINGS: There are no dilated loops of bowel. There is a paucity of stool in the colon. Surgical cli ps in the right upper quadrant are likely from cholecystectomy. The nasogastric tube tip is in the st omach. IMPRESSION: 1. Normal bowel gas pattern. Reviewed, dictated and finalized at location A. ER DIRECTOR LEAD TEACHER
--- NOTE | ~2021-05-11 | US_ITS ---
EXAMINATION: US venous doppler LE EXAM DATE: 05/14/2021 12:00 INDICATION: Rule out DVT R/O DVT . TECHNIQUE: Multiple grayscale, color flow and Doppler images of the lower extremity deep venous syste ms bilaterally were obtained and reviewed. There is no prior study for comparison. FINDINGS: Right side: The right common femoral, femoral and profunda veins demonstrate normal color flow, respi ratory variation, augmentation and compressibility. Compressibility, color flow confirmed within the right popliteal, posterior tibial, peroneal, and greater saphenous veins. Left side: The left common femoral, femoral and profunda veins demonstrate normal color flow, respira tory variation, augmentation and compressibility. Compressibility, color flow confirmed within the l eft popliteal, posterior tibial, peroneal, and greater saphenous veins. IMPRESSION: 1. No lower extremity deep venous thrombosis bilaterally. Reviewed, dictated and finalized at location A. CIATE DIRECTOR OF NURSING
--- NOTE | ~2021-05-11 | CT_ITS ---
EXAMINATION: CT chest abdomen pelvis wo con DATE: 05/11/2021 19:27 INDICATION: Shortness of breath and abdominal pain, leukocytosis TECHNIQUE: Transaxial computed tomographic images of the chest, abdomen, and pelvis were obtained wit hout intravenous contrast. The dose-length product (DLP) was 1360.55 mGy-cm. Automated exposure contr ol and iterative reconstruction technique were employed. COMPARISON: None FINDINGS: CHEST CT: There is moderate emphysema. An 8 mm nodule is present in the left lung apex. There is a small left p leural effusion. There is an 8.3 x 4.1 cm masslike opacity of the left lower lobe. There is mediastin al lymphadenopathy. Also seen are multiple soft tissue masses adjacent to the pericardium, the larges t of which measures 6.5 x 4.5 cm along the lateral left heart border. There is a 4.1 x 3.6 cm left ax illary lymph node. The heart size is normal. There is moderate thoracic spondylosis. Changes of prior cardiac surgery are noted. ABDOMEN/PELVIS CT: The gallbladder is surgically absent. Within the limitations of noncontrast examination, the liver, s pleen, adrenal glands, and kidneys are normal. There are widespread soft tissue masses throughout the abdomen and pelvis involving the peritoneum and retroperitoneum. Masses are also seen in the pericol ic gutters and in the subcutaneous tissues of the right flank. There is matted lymphadenopathy of the gastrohepatic ligament resulting in a 12.3 x 7.1 cm confluent soft tissue mass. The body of the panc reas is not well visualized due to the adjacent soft tissue mass. There is a questionable mass of the head of the pancreas. There is severe lumbar spondylosis. There is a moderate volume of ascites. IMPRESSION: 1. Widespread metastatic disease of the chest, abdomen, and pelvis of unclear etiology. Masslike opac ity of the left lower lobe could reflect acute airspace disease versus malignancy. In addition, quest ionable mass in the head of the pancreas could reflect primary versus metastatic malignancy. Of the m any areas of metastatic disease, the left axillary lymph node and subcutaneous mass of the right flan k are likely most easily accessible for percutaneous biopsy which is recommended. Reviewed, dictated and finalized at location F. TRIMMER IMPRESSION: 1. Widespread metastatic disease of the chest, abdomen, and pelvis of unclear e tiology. Masslike opacity of the left lower lobe could reflect acute airspace d isease versus malignancy. In addition, questionable mass in the head of the tovar creas could reflect primary versus metastatic malignancy. Of the many areas of metastatic disease, the left axillary lymph node and subcutaneous mass of the r ight flank are likely most easily accessible for percutaneous biopsy which is r ecommended.
--- NOTE | ~2021-05-11 | NM_ITS ---
EXAMINATION: NM pulmonary perfusion EXAM DATE: 05/14/2021 11:55 INDICATION: Shortness of breath. TECHNIQUE: A perfusion lung scan was performed. The patient was injected with 5 mCi technetium 99m M AA and imaged. The Modified PIOPED 2 criteria used for interpretation of this perfusion only study, w ith 3 possible interpretations (PE present, PE absent, nondiagnostic) based on findings present, and correlated with a recent chest x-ray. More specifically, a high probability scan will be interpreted as pulmonary embolism present. A normal or near normal scan will be interpreted as pulmonary embolism absent. And finally an intermediate probability scan will be interpreted as nondiagnostic. Correlati on made to chest x-ray obtained immediately after this exam. FINDINGS: There is mildly heterogeneous perfusion bilaterally without segmental sized defect. There is cardiome samantha and diffusely less perfusion of the left lung than right which could be due to decreased volume compared to contralateral side. Chest x-ray same day demonstrated bilateral ill-defined airspace disease with more confluent focal mu ltisegmental left basilar consolidation and small to moderate left pleural effusion. IMPRESSION: Nondiagnostic perfusion scan. Reviewed, dictated and finalized at location A. NIC MANAGER
--- NOTE | ~2021-05-11 | XR_ITS ---
EXAMINATION: XR chest 2V EXAM DATE: 05/14/2021 12:05 INDICATION: Shortness of breath. TECHNIQUE: Frontal and lateral projections of the chest obtained and reviewed. Comparison is made to prior examination from 05/11/2021. FINDINGS: There is cardiomegaly. Sternotomy wires are present without findings to suggest sternal de hiscence. Development of bilateral ill-defined airspace disease with persistent more confluent focal multisegme ntal left basilar consolidation and small to moderate left pleural effusion. Consider pneumonia and/o r edema. No pneumothorax. There are mild bony degenerative changes. IMPRESSION: 1. Cardiomegaly. 2. Multisegmental left basilar, otherwise ill-defined bilateral pneumonia or edema. Reviewed, dictated and finalized at location A. RVISOR CORE SHOP IMPRESSION: 1. Cardiomegaly. 2. Multisegmental left basilar, otherwise ill-defined bilateral pneumonia or e sia.
--- NOTE | ~2021-05-11 | XR_ITS ---
EXAMINATION: XR pelvis 1-2V INDICATION: Left hip pain after fall TECHNIQUE: AP view the pelvis is obtained. COMPARISON: None available FINDINGS: Bone alignment is normal. There is no fracture. There is moderate left and mild right hip o steoarthritis. Calcified atherosclerosis is noted. IMPRESSION: 1. No acute osseous abnormality. Reviewed, dictated and finalized at location F. FEL CART COOK
--- NOTE | ~2021-05-11 | US_ITS ---
EXAMINATION: US renal BI DATE: 05/12/2021 08:23 INDICATION: Acute kidney injury. TECHNIQUE: Multiple ultrasound grayscale images of the kidneys were obtained. COMPARISON: CT 05/11/2021 FINDINGS: The right kidney measures 11.8 x 5.4 x 6.7 cm. The left kidney measures 10.6 x 6.7 x 6.1 cm. The kidn eys demonstrate normal parenchymal echogenicity. There is mild bilateral hydronephrosis. The bladder is decompressed by a Yanez catheter. IMPRESSION: 1. Mild bilateral hydronephrosis. Normal kidney sizes. Reviewed, dictated and finalized at location A. R CONTROLLER
--- NOTE | ~2021-05-11 | XR_ITS ---
EXAMINATION: XR femur LT min 2V INDICATION: Left femur pain after fall TECHNIQUE: Two views of the left femur are obtained on four radiographs. COMPARISON: None available FINDINGS: Bone alignment is normal. There is no fracture. There is moderate osteoarthritis of the hip . Calcified atherosclerosis is noted. IMPRESSION: 1. No acute osseous abnormality. Reviewed, dictated and finalized at location F. ST
--- NOTE | ~2021-05-11 | XR_ITS ---
XR abdomen NG/feed tube insert DATE: 05/14/2021 18:40 INDICATION: NG tube insertion TECHNIQUE: Portable AP view of upper abdomen on 05/14/2021 at 1830 hours COMPARISON: None FINDINGS: Status post sternotomy. There is left lower lobe infiltrate/atelectasis and suggestion of small left pleural effusion. There is a nasogastric tube in the body of the stomach, the proximal side-port not far distal to the diaphragmatic hiatus. IMPRESSION: NG tube in stomach Reviewed, dictated and finalized at Location A. Reviewed, dictated and finalized at location A. FORMING MACHINE OPERATOR IMPRESSION: NG tube in stomach
--- NOTE | ~2021-05-11 | XR_ITS ---
XR abdomen/kub 1V 05/14/2021 12:05 INDICATION: Abdomen pain and nausea TECHNIQUE: KUB COMPARISON: 02/23/2013 FINDINGS: There are mildly dilated small bowel loops in the left lateral abdomen measuring up to 3.8 cm. There is gas in fecal material throughout the colon. No free air is identified. Moderate lumbar s pondylosis. There is atherosclerosis of the aorta. Left lower lobe airspace disease is present. IMPRESSION: 1: Mildly dilated small bowel which may represent ileus or partial small bowel obstruction. 2: Left lower lobe airspace disease, pneumonia versus atelectasis. Reviewed, dictated and finalized at location B. CATION AIDE
--- NOTE | ~2021-05-11 | US_ITS ---
EXAMINATION: US biopsy lymph node DATE: 05/12/2021 11:28 INDICATION: Left axillary mass. TECHNIQUE: The procedure including the risks, benefits, and alternatives was discussed with the patie nt. Risks discussed included bleeding and infection. The patient understood the risks and agreed to p roceed. The skin overlying the left axilla was prepped and draped in usual sterile fashion. Anesthet ic was administered with 1% lidocaine subcutaneously. An 18 gauge core biopsy needle was then used t o obtain 3 core biopsy specimens under continuous sonographic guidance. The entry site was cleaned an d dressed. There were no immediate complications. FINDINGS: Ultrasound images demonstrate the needle in a 5.1 x 2.9 x 4.2 cm mass in left axilla. IMPRESSION: 1. Ultrasound-guided core needle biopsy of a left axillary mass. Reviewed, dictated and finalized at location A. RAFT CHARTER DISPATCHER
--- NOTE | ~2021-05-11 | CT_ITS ---
EXAMINATION: CT brain wo con DATE: 05/13/2021 15:43 INDICATION: Cancer staging TECHNIQUE: Computed tomography (CT) of the head was performed without intravenous contrast. The dose- length product was 832.33 mGy-cm. Automated exposure control and iterative reconstruction technique w ere employed. COMPARISON: None FINDINGS: Generalized atrophy. Study limited by motion and streak artifact. There are scattered mild periventricular and subcortical white matter changes, most likely related to small vessel ischemic di sease (microangiopathy). There is intracranial atherosclerosis. No acute intracranial hemorrhage, inf arction, mass or mass effect. Basilar cisterns are patent. There is mucosal thickening of the maxilla ry sinuses. IMPRESSION: 1. No acute intracranial abnormality. Reviewed, dictated and finalized at location B. ER EDUCATION ADMINISTRATOR
--- NOTE | ~2021-05-11 | XR_ITS ---
EXAMINATION: XR chest 1V portable INDICATION: Shortness of breath, congestive heart failure TECHNIQUE: Portable AP chest at 1704 hours COMPARISON: 01/14/2021 FINDINGS: Cardiomegaly is noted. There is a mild diffuse interstitial pattern. A small left pleural e ffusion is present. There are minimal left basilar airspace opacities. There is no pneumothorax. Medi an sternotomy wires and mediastinal surgical clips are seen, likely from prior coronary artery bypass grafting. IMPRESSION: 1. Cardiomegaly with mild pulmonary edema. 2. Small left pleural effusion. There are three left basilar airspace opacities, likely atelectasis. Reviewed, dictated and finalized at location F. K SALES REPRESENTATIVE IMPRESSION: 1. Cardiomegaly with mild pulmonary edema. 2. Small left pleural effusion. There are three left basilar airspace opacities , likely atelectasis.
--- NOTE | 2021-05-11 16:46 | ECG_ITS ---
Measurements Intervals [place] Rate: 85 P: 39 AL: 158 QRS: 11 QRSD: 137 T: 15 QT: 373 QTc: 444 Interpretive Statements SINUS RHYTHM RIGHT BUNDLE BRANCH BLOCK BASELINE WANDER- V4-V6 ABNORMAL ECG Electronically Signed On 05-11-2021 20:24:24 PHYSICAL INTEGRATION PRACTITIONER by Bennie Esteves D.O.
--- NOTE | 2021-05-11 16:48 | ED.GENADULT ---
HPI - General Adult General Chief complaint: Abdominal Pain Stated complaint: feeling bad Time Seen by Provider: 05/11/21 16:12 Source: patient Mode of arrival: EMS Limitations: no limitations History of Present Illness HPI narrative: Patient presents for evaluation of constipation. He indicates he has not had a substantial bowel movement in the last 3 to 4 days. His normal bowel pattern is once daily. He is experience some intermittent abdominal pain. He describes the pain as an ache , which occurs about twice a day and lasts anywhere from 30 minutes to several hours. He rates the pain 5 out of 10 in severity. He has experienced nausea without vomiting. He tried taking prune juice for his constipation. He states that he is wondering whether there is a problem with (his) kidneys or liver . He does admit to drinking regularly for many years but states that he has not had any alcohol in the last month. He contacted EMS who brought him here for further evaluation. He indicates that they placed him on O2 en route due to wheezing. Patient states he is not on O2 at home. Reports shortness of breath and nonproductive cough. He has a long standing history of smoking but states that he does not smoke any longer. Denies any chest pain, fever, chills. No personal history of COVID. He has received two COVID vaccinations was due for his booster in near future. He denies any recent sick contacts to his knowledge. He states that he tripped in the bathroom two days ago and landed on his hip. He did not hit his nor did he have LOC. No other injuries. He states it took him about fifteen minutes to get up off of the ground. He has noted pain in left hip/femur since that time. He states that he has had problems getting around since that time. He has been using an electric scooter to mobilize. Related Data Home Medications Medication Instructions Recorded Confirmed aspirin 81 mg PO DAILY 01/14/21 01/14/21 carvedilol 12.5 mg PO BID 01/14/21 01/14/21 yzxihetk-xut-IQ-lycopen-lutein 1 tablet PO DAILY 01/14/21 01/14/21 omeprazole 40 mg PO DAILY 01/14/21 01/14/21 simvastatin 80 mg PO HS 01/14/21 01/14/21 Allergies Allergy/AdvReac Type Severity Reaction Status Date / Time No Known Allergies Allergy Verified 05/11/21 16:22 Review of Systems Review of Systems: CONSTITUTIONAL: Denies fever, chills, or sweats. EYES: Denies visual changes, redness, or discharge. ENT: Denies rhinorrhea, congestion, sore throat, or otalgia. CARDIOVASCULAR: Denies chest pain, palpitations, or edema. RESPIRATORY: Reports SOB and nonproductive cough GASTROINTESTINAL: Reports abdominal pain, nausea, and constipation GENITOURINARY: Denies dysuria or hematuria. SKIN: Denies rash or itching. MUSCULOSKELETAL: Reports left hip pain. Denies back pain and mylagias NEUROLOGIC: Denies headache, numbness, dizziness, or weakness. PSYCHIATRIC: Denies anxiety or depression. [facility] Past Medical History Medical History (Updated 05/11/21 @ 22:12 by RADHA Farrell, LIS) Acute exacerbation of chronic obstructive airways disease CHF (congestive heart failure), NYHA class I Depression History of tobacco abuse Hyperlipidemia Hypertension Surgical History Surgical History History of tonsillectomy S/P CABG x 3 non-STEMI in 2009 followed by 3 vessel CABG in [facility] (RUFF to the LAD, SVG to the OM, SVG to the RCA ) Family History Family History Mother Family history of malignant neoplasm of breast in first degree relative Father Family history of heart disease in male family member before age 55 Acute myocardial infarction Unknown Cerebrovascular accident Social History Social History Social History: The patient stated that he smoked a pack a cigarettes for many years and
[2021-05-11] MEDS: IPRATROPIUM BR 0.02% INH SOLN 0.5 MG/2.5 ML VIAL INHALATION (17:01)
[2021-05-11] MEDS: ALBUTEROL SULFATE NEB 2.5 MG/3 ML INH INHALATION (17:01)
[2021-05-11] MEDS: methylPREDNISolone SOD SUCC 125 MG VIAL IV PUSH (17:46)
[2021-05-11 17:57] LABS: Add Urine Microscopic? YES; Appearance Urine Cloudy (Clear); Bacteria Urine Trace /hpf; Bilirubin Urine Negative (Negative); Blood Urine 1+ (Negative); Cellular Casts Urine Present /lpf; Color Urine Yellow (Yellow); Glucose Urine UA Negative (Negative); Hyaline Casts Urine 50+ /lpf; Ketones Urine Trace mg/dL (Negative); Leukocyte Esterase Ur Negative LEU/UL (Negative); Mucus Urine Rare /lpf; Nitrate Urine Negative (Negative); Protein Urine Negative (Negative); Specific Grav Ur 1.014 (1.001-1.035); Squamous Epithelial Cell Urine Occasional /hpf (Few); Urobilinogen Urine Negative mg/dL (<2.0); WBC Urine 0-3 /hpf
[2021-05-11 18:11] LABS: Hematocrit 24.8 % (42.0-52.0); Hemoglobin 7.9 g/dL (14.0-18.0); Mean Corpuscular HGB Conc 31.9 g/dl (32-36); Mean Corpuscular Hemoglobin 29.3 pg (26-34); Mean Corpuscular Volume 91.9 fl (80-100); Mean Platelet Volume 9.9 fl (7.4-10.4); Platelet Count Result 1216 k/mm3 (150-375); Red Cell Distribution Width 17.4 % (11.5-14.5); White Blood Count 41.7 K/mm3 (4.5-10.0)
[2021-05-11 18:21] LABS: Creatine Kinase 107 U/L (55-170); Lactic Acid Reflex 1.3 mmol/L (0.7-2.1); Lipase 29 U/L (23-300)
[2021-05-11 18:22] LABS: Alanine Aminotransferase 14 U/L (4-50); Albumin Level 2.6 g/dL (3.5-5.1); Alkaline Phosphatase 78 U/L (38-126); Anion Gap 8 mmol/L (8-16); Aspartate Amino Transferase 36 U/L (17-59); Bilirubin,Total 0.4 mg/dL (0.2-1.3); Blood Urea Nitrogen 86 mg/dL (9-20); Carbon Dioxide 21 mmol/L (22-30); Chloride 100 mmol/L (98-107); Estimated CRCL calculation 25 ml/min; Estimated Glomerular Filt Rate 22; Glucose 99 mg/dL (65-110); Potassium 5.2 mmol/L (3.4-5.0); Sodium 129 mmol/L (137-145)
[2021-05-11 18:23] LABS: INR 1.2; Prothrombin Time 14.6 Seconds (11.1-14.7)
[2021-05-11 18:24] LABS: Partial Thromboplastin Time 32.3 SECONDS (22.3-36.8)
[2021-05-11 18:29] LABS: SARS-CoV-2 RNA PCR Negative
[2021-05-11 18:34] LABS: NT Pro B Type Natriuretic Pept 3770 pg/mL (5-100); Troponin I < 0.012 ng/mL (0.000-0.034)
[2021-05-11 18:36] LABS: Band Neutrophils Percent 16 % (0-6); Eosinophils Absolute Manual 1.66 K/mm3 (0.02-0.5); Eosinophils Percent Manual 4 % (0-4); Monocytes Absolute Manual 2.08 K/mm3 (0.1-0.90); Monocytes Percent Manual 5 % (3-9); Neutrophils Absolute Manual 35.44 K/mm3 (1.3-6.7); Neutrophils Percent Manual 69 % (46-73); Platelet Estimate Increased (Adequate); Total Cells Counted 100
[2021-05-11 18:37] LABS: Anisocytosis 2+ (NORMAL)
[2021-05-11 18:38] LABS: Hypochromasia 1+ (NORMAL)
--- NOTE | 2021-05-11 20:20 | PM.IMHP ---
H&P: HPI History of Present Illness Date/Time: 05/11/21 20:20 Chief Complaint: Shortness of breath Narrative: This is a 80-year-old male with past medical history significant for tobacco dependence, coronary artery disease status post coronary artery bypass graft x3 vessel disease, COPD/emphysema, hypertension. Patient with recent admission and discharge in early March for worry seem to be congestive heart failure and COPD exacerbation. Patient presents today to the emergency room due to constipation, shortness of breath. After patient trying numerous methods with no relieve. Patient denies any fevers, rigors, chills, has had shortness of breath and wheezing, cough but no sputum production, has had some nausea but no vomiting, has abdominal pain localized to the left lower quadrant his oral intake has been poor as well complains of poor appetite patient denies any melena, any hematemesis, any hematochezia.Preliminary workup was significant for CT of chest abdomen and pelvis with multiple metastatic lesions and unknown primary cancer. Patient is been admitted for further evaluation ,management and treatment. Review of Systems Review of Systems: Shortness of breath, constipation, hip pain, back pain. Constitutional: Constitutional: Denies chills, Denies fatigue, Denies fever(s), Denies malaise, Denies night sweats, Reports poor appetite, Denies weakness and Reports weight loss Eyes: Eyes: Denies change in vision ENT: Denies dysphagia, Denies nasal congestion, Denies nasal discharge, Denies nasal obstruction and Denies odynophagia Cardiovascular: Cardiovascular: Denies pedal edema, Denies claudication, Denies leg edema, Denies radiating jaw, neck or arm pain, Denies palpitations, Reports dyspnea, Denies dyspnea on exertion and Denies orthopnea Respiratory: Respiratory: Denies excessive phlegm production, Reports dyspnea and Reports wheezing Gastrointestinal: Gastrointestinal: Reports abdominal pain, Denies dyspepsia, Denies heartburn, Reports nausea and Denies vomiting Genitourinary: Genitourinary: Denies dysuria Musculoskeletal: Musculoskeletal: Reports arthralgias (Left hip) Integumentary/Breasts: Skin/Breast: Denies rash Neurologic: Denies focal weakness and Denies Sensory deficit (Neuro) Psychiatric: Psychiatric: Reports no additional psychiatric complaints and Reports as per HPI Endocrine: Endocrine: Denies cold intolerance, Denies heat intolerance, Denies polyphagia, Denies polydipsia, Denies polyuria and Denies palpitations Hematologic/Lymphatic: Hematologic/Lymphatic: Reports no additional hematologic/lymphatic complaints and Reports as per HPI Allergic/Immunologic: Allergic/Immunologic: Reports no additional allergic/immunologic complaints and Reports as per HPI [facility] Past Medical History Medical History (Updated 05/12/21 @ 04:06 by Vincent Nieves MD) Acute exacerbation of chronic obstructive airways disease CHF (congestive heart failure), NYHA class I Depression History of tobacco abuse Hyperlipidemia Hypertension Surgical History Surgical History History of tonsillectomy S/P CABG x 3 non-STEMI in 2009 followed by 3 vessel CABG in [facility] (RUFF to the LAD, SVG to the OM, SVG to the RCA ) Family History Family History Mother Family history of malignant neoplasm of breast in first degree relative Father Family history of heart disease in male family member before age 55 Acute myocardial infarction Unknown Cerebrovascular accident Social History Social History Social History: The patient stated that he smoked a pack a cigarettes for many years and then he went down to half a pack. He no longer smokes. He states that he consumed alcohol regularly for many years but has not had any alcohol in the past month. The lowell
[2021-05-11 20:35] LABS: Troponin I < 0.012 ng/mL (0.000-0.034)
--- NOTE | 2021-05-11 23:36 | PC.NURSE ---
Fluctuation in O2 sats noted by this RN. O2 titrated to 2L NC at this time.
[2021-05-11] MEDS: SODIUM CHLORIDE 0.9% IV 1,000 ML 50 ML IV CONT (23:51)
[2021-05-12] VITALS (79 sets, daily range): BP systolic 86–113; BP diastolic 50–75; PULSE 67–103; RESP 12–27; TEMP 36–36.6; O2SAT 87–99; BMI 37.0
--- NOTE | 2021-05-12 | ECHO_ITS ---
Patient Info Name: Santosh Gonzalez Age: 80 years : 1940 Gender: Male Ht: 71 in Wt: 243 lbs BSA: 2.39 m2 HR: 79 bpm BP: 101 / 59 mmHg Heart Rhythm: Sinus Rhythm Technical Quality: Poor Exam Date: 05/12/2021 11:58 AM Exam Location: [facility] Patient Status: Inpatient Admit Date: 05/11/2021 Staff Ordering Physician: Vicnent Nieves MD Grease Worker: Chacha Camp RDCS Attending Provider: Vincent Nieves MD Referring Physician: Ezequiel DALE; Exam Type: CA echo dop color flow w con Study Info Indications - CHF Complete two-dimensional, color flow and Doppler transthoracic echocardiogram is performed with contrast to opacify the left ventricle and to improve the deliniation of the left ventricle endocardial borders. Contrast/Agitated Saline Contrast/Ag. Saline: Definity Amount: 4.00 ml Existing IV Access: Yes IV Access Condition: patent with no signs of infiltration Reason for Poor Study: poor echocardiographic windows Summary 1. Left ventricular chamber dimension is normal. 2. Mild left ventricular hypertrophy with normal systolic function and grade 1 diastolic noncompliance. 3. Ejection fraction 60-65%. 4. Definity contrast injected to improve visualization. 5. There is mild aortic valve sclerosis. 6. There is mild mitral valve regurgitation. 7. Compared with examination this laboratory about 4 months ago there are no significant differences. Left Ventricle Left ventricular chamber dimension is normal. Mild left ventricular hypertrophy with normal systolic function and grade 1 diastolic noncompliance. Ejection fraction 60-65%. Definity contrast injected to improve visualization. Right Ventricle Right ventricular chamber dimension is normal. Left Atria Left atrial chamber dimension is moderately enlarged. Right Atria Right atrial chamber dimension is mildly enlarged. Aortic Valve The aortic valve is trileaflet. There is mild aortic valve sclerosis. Pulmonic Valve The pulmonic valve is not well visualized. Mitral Valve The mitral valve has normal leaflets. There is mild mitral valve regurgitation. The mitral valve annulus is mildly calcified. Tricuspid Valve The tricuspid valve leaflets are normal. There is mild tricuspid valve regurgitation. Pericardium/Pleural The pericardium appears normal. Aorta The aortic root size at the sinus of Valsalva is normal. Left Ventricular Outflow Tract Name Value Normal LVOT 2D LVOT Diameter 1.98 cm LVOT Doppler LVOT Peak Gradient 11 mmHg LVOT Mean Gradient 6 mmHg LVOT VTI 35.14 cm LVOT VTI/AV VTI Ratio 0.86 LVOT Stroke Volume 108.58 ml LVOT CO 7.77 l/min LVOT CI 3.26 L/min/m2 Pulmonic Valve Name Value Normal
[2021-05-12 06:14] LABS: Alanine Aminotransferase 13 U/L (4-50); Albumin Level 2.3 g/dL (3.5-5.1); Alkaline Phosphatase 70 U/L (38-126); Anion Gap 10 mmol/L (8-16); Aspartate Amino Transferase 25 U/L (17-59); Bilirubin,Total 0.2 mg/dL (0.2-1.3); Blood Urea Nitrogen 86 mg/dL (9-20); Calcium 7.6 mg/dL (8.4-10.2); Carbon Dioxide 21 mmol/L (22-30); Chloride 97 mmol/L (98-107); Estimated CRCL calculation 23 ml/min; Estimated Glomerular Filt Rate 20; Glucose 152 mg/dL (65-110); Potassium 5.2 mmol/L (3.4-5.0); Sodium 128 mmol/L (137-145)
[2021-05-12 06:15] LABS: Hematocrit 21.2 % (42.0-52.0); Mean Corpuscular HGB Conc 31.6 g/dl (32-36); Mean Corpuscular Hemoglobin 28.6 pg (26-34); Mean Corpuscular Volume 90.6 fl (80-100); Platelet Count Result 1136 k/mm3 (150-375); Red Blood Count 2.34 M/mm3 (4.6-6.20); Red Cell Distribution Width 17.4 % (11.5-14.5); White Blood Count 30.1 K/mm3 (4.5-10.0)
--- NOTE | 2021-05-12 07:17 | PC.NURSE ---
Pt resting with eyes closed. States he feels fine . pt aware he is waiting for bed placement. pt has no complaints at this time.
[2021-05-12 07:41] LABS: Hemoglobin 6.7 g/dL (14.0-18.0)
[2021-05-12 07:44] LABS: Band Neutrophils Percent 13 % (0-6); Monocytes Percent Manual 1 % (3-9); Neutrophils Absolute Manual 28.29 K/mm3 (1.3-6.7); Neutrophils Percent Manual 81 % (46-73); Platelet Estimate Increased (Adequate); Total Cells Counted 100
--- NOTE | 2021-05-12 10:48 | PC.NURSE ---
per ultrasound please hold lovenox, pt will receive a biopsy today.
[2021-05-12] MEDS: PERFLUTREN LIPID MICROSPHERES 1.5 ML VIAL DILUTED TO 10 ML TOTAL VOLUME IV PUSH (13:06)
--- NOTE | 2021-05-12 18:51 | PM.IMPN ---
Progress Note: A&P Assessment and Plan (1) Metastatic disease: Qualifiers: Area of secondary neoplastic involvement: unspecified site Qualified Code(s): C79.9 - Secondary malignant neoplasm of unspecified site Code(s): C79.9 - Secondary malignant neoplasm of unspecified site Status: Acute Assessment and Plan: Unknown primary Hematology-Oncology has been consulted CT of chest abdomen and pelvis reviewed 05/12/2021 interval history: patient with abdominal pain and blood CT scan of the chest, abdominal and pelvis showing multiple metastasis lesion with unknown primary, patient with anemia most likely secondary to metastasis lesion, will get the patient 1 unit pack RBC, patient states he did have a BM this morning emergency depart, his pain is little better and and he feels hungry will start the patient on clear liquid keep the patient NPO, patient be seen by GI and Oncology and further recommendation to follow. (2) S/P CABG x 3: Code(s): Z95.1 - Presence of aortocoronary bypass graft Status: Acute Assessment and Plan: Unchanged (3) CHF (congestive heart failure), NYHA class I: Code(s): I50.9 - Heart failure, unspecified Status: Chronic Assessment and Plan: Will obtain an echocardiogram Last echocardiogram is from on February of 2021 Ejection fraction of 60-65% Possibly secondary to thrombocytosis (4) Hypertension: Code(s): I10 - Essential (primary) hypertension Status: Chronic Assessment and Plan: Patient is on carvedilol and Lasix (5) Thrombocytosis: Code(s): D75.839 - Thrombocytosis, unspecified Status: Acute Assessment and Plan: Patient with platelets above 1,000,000 Will defer to Heme-Onc for initiation of therapy (6) Tobacco dependence: Code(s): F17.200 - Nicotine dependence, unspecified, uncomplicated Status: Acute Assessment and Plan: Nicotine patch as needed (7) COPD exacerbation: Code(s): J44.1 - Chronic obstructive pulmonary disease with (acute) exacerbation Status: Acute Assessment and Plan: Resume inhalers Continue p.o. prednisone No change in sputum quality or production (8) Leukocytosis: Code(s): D72.829 - Elevated white blood cell count, unspecified Status: Acute Assessment and Plan: Patient with metastatic cancer as well as on steroids Continue to monitor (9) Normochromic normocytic anemia: Code(s): D64.9 - Anemia, unspecified Status: Acute Assessment and Plan: Likely to be anemia of chronic disease Transfuse for hemoglobin below 7 (10) Diastolic congestive heart failure: Code(s): I50.30 - Unspecified diastolic (congestive) heart failure Status: Acute Assessment and Plan: Gentle diuresis (11) Acute kidney injury: Code(s): N17.9 - Acute kidney failure, unspecified Status: Acute Assessment and Plan: Elevated BUN and creatinine Likely to be pre renal will hold Lasix Although patient might need diuresis secondary to congestive heart failure (12) Hyponatremia with excess extracellular fluid volume: Code(s): E87.1 - Hypo-osmolality and hyponatremia Status: Acute Assessment and Plan: Could be multifactorial as patient with poor p.o. oral intake as well as taking loop diuretics also patient with congestive heart failure Will continue to monitor Subjective Date/time seen: 05/12/21 18:51 Chief Complaint: Shortness of breath Narrative: This is a 80-year-old male with past medical history significant for tobacco dependence, coronary artery disease status post coronary artery bypass graft x3 vessel disease, COPD/emphysema, hypertension. Patient with recent admission and discharge in early March for worry seem to be congestive heart failure and COPD exacerbation. Patient presents today to the emergency room due to constipation, shortness of breath. After patient tryi
[2021-05-12] MEDS: SODIUM CHLORIDE 0.9% IV 1,000 ML 50 ML IV CONT (20:41)
--- NOTE | 2021-05-12 21:40 | ADMGEN ---
This patient, Santosh Gonzalez Jr., was admitted to Medical Room 254-01. Patient/family oriented to hospital policies and general routines including ID bracelet, bed and alarms, visiting hours, pain management, procedures, bathroom and other care routines, personal items, smoking policy, room service/diet, and visiting hours. Information on how to activate the Rapid Response Team has been discussed. Patient/Family are encouraged to report perceived risks to care and to ask questions if they do not understand what they are told or what they should do.
[2021-05-13] VITALS (12 sets, daily range): BP systolic 83–129; BP diastolic 48–64; PULSE 81–100; RESP 18–20; TEMP 36.2–36.6; O2SAT 94–95
[2021-05-13 05:52] LABS: Hematocrit 25.7 % (42.0-52.0); Hemoglobin 8.1 g/dL (14.0-18.0); Mean Corpuscular HGB Conc 31.5 g/dl (32-36); Mean Corpuscular Hemoglobin 28.1 pg (26-34); Mean Corpuscular Volume 89.2 fl (80-100); Mean Platelet Volume 9.8 fl (7.4-10.4); Platelet Count Result 1061 k/mm3 (150-375); Red Blood Count 2.88 M/mm3 (4.6-6.20); Red Cell Distribution Width 16.8 % (11.5-14.5); White Blood Count 35.3 K/mm3 (4.5-10.0)
[2021-05-13 06:03] LABS: Alanine Aminotransferase 12 U/L (4-50); Albumin Level 2.4 g/dL (3.5-5.1); Alkaline Phosphatase 60 U/L (38-126); Anion Gap 5 mmol/L (8-16); Aspartate Amino Transferase 23 U/L (17-59); Bilirubin,Total 0.4 mg/dL (0.2-1.3); Blood Urea Nitrogen 97 mg/dL (9-20); Calcium 7.7 mg/dL (8.4-10.2); Carbon Dioxide 23 mmol/L (22-30); Chloride 100 mmol/L (98-107); Estimated CRCL calculation 28 ml/min; Estimated Glomerular Filt Rate 24; Glucose 112 mg/dL (65-110); Magnesium 2.7 mg/dL (1.6-2.3); Potassium 4.6 mmol/L (3.4-5.0); Sodium 128 mmol/L (137-145)
[2021-05-13] MEDS: ENOXAPARIN 40 MG/0.4 ML SYRINGE SUB-Q (09:22)
--- NOTE | 2021-05-13 10:26 | PM.IMPN ---
Progress Note: A&P Assessment and Plan (1) Metastatic disease: Qualifiers: Area of secondary neoplastic involvement: unspecified site Qualified Code(s): C79.9 - Secondary malignant neoplasm of unspecified site Code(s): C79.9 - Secondary malignant neoplasm of unspecified site Status: Acute Assessment and Plan: Unknown primary patient with abdominal pain and blood CT scan of the chest, abdominal and pelvis showing multiple metastasis lesion with unknown primary, patient with anemia most likely secondary to metastasis lesion, per record patient be seen by GI and Oncology and further recommendation to follow. Axillary lymph node biopsy on 05/13/2021 (2) S/P CABG x 3: Code(s): Z95.1 - Presence of aortocoronary bypass graft Status: Acute Assessment and Plan: Stable continue current treatment (3) CHF (congestive heart failure), NYHA class I: Code(s): I50.9 - Heart failure, unspecified Status: Chronic Assessment and Plan: I think patient is dehydrated CHF is chronic diastolic ejection fraction 60% Patient may benefit from IV hydration (4) Hypertension: Code(s): I10 - Essential (primary) hypertension Status: Chronic Assessment and Plan: Patient is on carvedilol (5) Thrombocytosis: Code(s): D75.839 - Thrombocytosis, unspecified Status: Acute Assessment and Plan: Patient with platelets above 1,000,000 Will defer to Heme-Onc for initiation of therapy (6) Tobacco dependence: Code(s): F17.200 - Nicotine dependence, unspecified, uncomplicated Status: Acute Assessment and Plan: Nicotine patch as needed (7) COPD exacerbation: Code(s): J44.1 - Chronic obstructive pulmonary disease with (acute) exacerbation Status: Acute Assessment and Plan: Resume inhalers Continue p.o. prednisone No change in sputum quality or production (8) Leukocytosis: Code(s): D72.829 - Elevated white blood cell count, unspecified Status: Acute Assessment and Plan: Patient with metastatic cancer as well as on steroids Most likely reactive CT scan shows possible area of consolidation cancer versus pneumonia unlikely patient has pneumonia check procalcitonin no fever no hypotension or tachycardia (9) Normochromic normocytic anemia: Code(s): D64.9 - Anemia, unspecified Status: Acute Assessment and Plan: Likely to be anemia of chronic disease Transfuse for hemoglobin below 7 (10) Diastolic congestive heart failure: Code(s): I50.30 - Unspecified diastolic (congestive) heart failure Status: Acute Assessment and Plan: Stable (11) Acute kidney injury: Code(s): N17.9 - Acute kidney failure, unspecified Status: Acute Assessment and Plan: Elevated BUN and creatinine Likely to be pre renal will hold Lasix Probably need gentle IV hydration Ultrasound shows mild bilateral hydronephrosis Pending nephrology eval Urine studies was sent (12) Hyponatremia with excess extracellular fluid volume: Code(s): E87.1 - Hypo-osmolality and hyponatremia Status: Acute Assessment and Plan: Could be multifactorial as patient with poor p.o. oral intake as well as taking loop diuretics also patient with congestive heart failure Will continue to monitor Subjective Date/time seen: 05/13/21 10:26 Interval history: Patient presented to the hospital with abdominal CT scan of the abdomen showed Widespread metastatic disease of the chest, abdomen, and pelvis of unclear etiology. Masslike opacity of the left lower lobe could reflect acute airspace disease versus malignancy. In addition, questionable mass in the head of the pancreas could reflect primary versus metastatic malignancy. Of the many areas of metastatic disease, the left axillary lymph node and subcutaneous mass of the right flank are likely most easily accessible for percutaneous biopsy which is r
--- NOTE | 2021-05-13 11:11 | PM.CNNEP ---
Assessment and Plan Assessment and plan (1) Acute kidney injury: Code(s): N17.9 - Acute kidney failure, unspecified Status: Acute Assessment and Plan: normal baseline creatinine history would suggest volume depletion/dehydration check urine electrolytes and CPK renal ultrasound noted - mild hydronephrosis but todd catheter in place agree with trial of IVFs follow I/Os and repeat labs (2) Hyponatremia: Code(s): E87.1 - Hypo-osmolality and hyponatremia Status: Acute Assessment and Plan: presumably due to hypovolemia however, cannot deny the possibility of SIADH phenomenon due to underlying malignancy follow trend of sodium with IVF hydration further testing to be done based repeat labs (3) Metastatic disease: Qualifiers: Area of secondary neoplastic involvement: unspecified site Qualified Code(s): C79.9 - Secondary malignant neoplasm of unspecified site Code(s): C79.9 - Secondary malignant neoplasm of unspecified site Status: Acute Assessment and Plan: as noted by imaging by admission s/p biopsy of lymph node Oncology consultation follow-up on biopsy results (4) Hypertension: Code(s): I10 - Essential (primary) hypertension Status: Chronic Assessment and Plan: some issues with relative hypotension on admision doing better now follow trend of hemodynamics (5) COPD exacerbation: Code(s): J44.1 - Chronic obstructive pulmonary disease with (acute) exacerbation Status: Acute Assessment and Plan: on steroids and inhaler follow respiratory status (6) Anemia: Qualifiers: Anemia type: unspecified type Qualified Code(s): D64.9 - Anemia, unspecified Code(s): D64.9 - Anemia, unspecified Status: Acute Assessment and Plan: suspect related to DENNIS, acute illness, and underlying malignancy follow H/H Will continue to follow. History of Present Illness Reason for Consult Consult date: 05/13/21 Reason for consult: acute renal failure Chief Complaint Chief complaint: Metastatic Disease History of Present Illness Narrative: The patient is a 80-year-old male with past medical history is outlined below who presented to [facility] Emergency room due to complaints of constipation and shortness of breath. The patient reports that for the last several days he has been having issues and problems with shortness of breath that has been unrelieved with numerous conservative/outpatient methods. He reported no other symptoms with regard to fevers, chills, or night sweats reports that his shortness of breath and wheezing have been somewhat persistent in association with a cough. He also reports some nausea but no vomiting but does admit to some lower abdominal failing which of his altered in poor oral intake as well. Given these symptoms that did not appear to be improving he presented to [facility] Emergency room for further evaluation and therapy. Workup and evaluation emergency room demonstrated the patient to be hemodynamically stable but in mild distress. Routine blood test demonstrated a markedly elevated BUN and creatinine in comparison to his previous labs as well. A CT scan of the chest abdomen pelvis were done for further evaluation of his symptoms which demonstrated multiple metastatic lesions and a unknown primary cancer although the suspicion falls on lung cancer as to possible primary source. Given these new findings by imaging along with his constellation of symptoms that led to his presentation to the ER, he was admitted to hospital for further evaluation and therapy. Renal consultation was requested due to his acute kidney injury/acute renal failure. From review his records, back in January of 2021 his renal function was well within normal limits. However on admission, his creatinine was up to 2.8 mg/dL and went as high as 3.0 mg/dL with a re
--- NOTE | 2021-05-13 11:18 | WPDGICN ---
Assessment and Plan Assessment and plan (1) Abnormal CT scan: Code(s): R93.89 - Abnormal findings on diagnostic imaging of other specified body structures Status: Acute Assessment and Plan: CT scan on presentation reveals evidence for what appears to be diffusely metastatic carcinoma. Primary uncertain. There is also question of pancreatic lesion. Would recommend initial evaluation with tumor markers. CA 19-9 will be obtained. Histology will be beneficial. Hopefully cytology can be obtained with lymph node biopsy or pancreatic biopsy. Will discuss further with oncology service has been consulted as well. (2) Diastolic congestive heart failure: Code(s): I50.30 - Unspecified diastolic (congestive) heart failure Status: Acute (3) CHF (congestive heart failure), NYHA class I: Code(s): I50.9 - Heart failure, unspecified Status: Chronic (4) Coronary artery disease: Code(s): I25.10 - Atherosclerotic heart disease of [place] coronary artery without angina pectoris Status: Acute GI Consult Note Consult date/time: 05/13/21 11:18 HPI: Santosh Gonzalez Jr. is a 80 year old male I am asked to see because of abnormal CT scan. Patient initially presents did with rather vague abdominal complaints and malaise. He has a history of COPD and congestive heart failure. Patient has a distant history of coronary artery bypass grafting. Patient felt somewhat constipated had general malaise went to the emergency room last evening. Extensive workup revealed a CT scan suggesting diffuse metastases of the chest abdomen and pelvis. Unknown primary lesion was evident. There was some question of pancreatic fullness however. I am asked to consult because of these findings. Review of Systems Review of Systems: All systems reviewed & are unremarkable except as noted in HPI and below PMFSH Past Medical History Medical History (Updated 05/13/21 @ 11:21 by William Vázquez MD) Acute exacerbation of chronic obstructive airways disease CHF (congestive heart failure), NYHA class I Depression History of tobacco abuse Hyperlipidemia Hypertension Surgical History Surgical History History of tonsillectomy S/P CABG x 3 non-STEMI in 2009 followed by [address] [facility] (RUFF to the LAD, SVG to the OM, SVG to the RCA ) Family History Family History Mother Family history of malignant neoplasm of breast in first degree relative Father Family history of heart disease in male family member before age 55 Acute myocardial infarction Unknown Cerebrovascular accident Social History Social History Social History: The patient stated that he smoked a pack a cigarettes for many years and then he went down to half a pack. He no longer smokes. He states that he consumed alcohol regularly for many years but has not had any alcohol in the past month. The patient is . The patient has 2 children. The patient does not have a durable power litigation attorney for healthcare. The patient is retired from being a patterson. Smoking packs per day: 1 Smoking cigarettes per day: 20.0 Years smoked: 40 Smoking pack-years: 40.00 Smoking status: Former smoker Tobacco type: cigarettes Second hand tobacco smoke exposure: Yes Smoking end date: 01/13/21 Alcohol intake: never Drinks per week: 7 Substance use: never Spiritual care concerns: No Meds Home Medications and Allergies Home Medications Medication Instructions Recorded Confirmed Type aspirin 81 mg PO DAILY 01/14/21 05/12/21 History carvedilol 12.5 mg PO BID 01/14/21 05/12/21 History omeprazole 40 mg PO DAILY 01/14/21 05/12/21 History simvastatin 80 mg PO HS 01/14/21 05/12/21 History albuterol sulfate 1 inh INHALATION QID PRN #8.5 g
--- NOTE | 2021-05-13 11:48 | PC.NURSE ---
I spoke with Dr. Vázquez about the patient's diet. From his standpoint patient does not need to be NPO. I spoke with Dr. Barrett and from his standpoint patient does not need to be NPO. I spoke with Dr. Caldwell and he stated since the patient had a lymph node biopsy on the from his standpoint he does not need to be NPO. I spoke with Dr. Moreau and he stated we may insert a full liquid diet and advance as tolerated to a regular diet.
[2021-05-13] MEDS: ASPIRIN 81 MG CHEWABLE TABLET PO (12:10)
[2021-05-13] MEDS: PANTOPRAZOLE 40 MG TABLET PO (12:10)
[2021-05-13 12:14] LABS: Procalcitonin 0.5 ng/mL
[2021-05-13] MEDS: carvediloL 12.5 MG TABLET PO (12:18)
[2021-05-13 12:32] LABS: Carcinoembryonic Antigen 1.4 ng/mL (0.0-3.0)
--- NOTE | 2021-05-13 12:54 | PDONCCN ---
HPI - Date of Consult Date/Time: 05/13/21 12:54 Requesting Physician: Vincent Nieves MD Primary Care Provider: FOOD CONSULTANT PHYSICIAN - Consult Narrative Reason for consult: Metastatic disease Narrative: Santosh Gonzalez Jr. is a 80 year old male with history of smoking coronary artery disease status post coronary artery bypass grafting along with COPD came into the hospital with increasing shortness of breath and generalized weakness. Patient was admitted to the hospital in March of 2021 with congestive heart failure and COPD exacerbation. He denies any fevers and chills. Denies any weight loss. CT scan on May 11 that showed widespread metastatic disease with 4.1 x 3.6 cm left axillary lymphadenopathy. There was 8.3 x 4.1 cm mass in the left lower lobe of the lung along with mediastinal lymphadenopathy and multiple soft tissue masses adjacent to the pericardium which measures 6.5 x 4.5 cm in the lateral left heart border. There was also widespread soft tissue masses throughout the abdomen and pelvis and matted lymphadenopathy of the gastrohepatic ligament resulting in 12.3 x 7.1 cm soft tissue mass. Liver spleen and adrenal glands were normal. Review of Systems - Review of Systems All systems reviewed & are unremarkable except as noted in HPI and bel - Neurologic Denies focal weakness, Denies sensory deficit, Denies weakness PMFSH Medical History: Medical History (Last Updated 01/16/21 @ 16:08 by Viviana Foster PA-C) Acute exacerbation of chronic obstructive airways disease CHF (congestive heart failure), NYHA class I Depression History of tobacco abuse Hyperlipidemia Hypertension Surgical History: Surgical History (Last Reviewed 05/11/21 @ 16:56 by RADHA Farrell, ) History of tonsillectomy S/P CABG x 3 non-STEMI in 2009 followed by 3 vessel CABG in [facility] (RUFF to the LAD, SVG to the OM, SVG to the RCA ) Family History: Family History (Last Reviewed 05/11/21 @ 16:56 by RADHA Farrell, LIS) Mother Family history of malignant neoplasm of breast in first degree relative Father Family history of heart disease in male family member before age 55 Acute myocardial infarction Unknown Cerebrovascular accident - Social History Social History: Social History (Last Reviewed 05/11/21 @ 16:58 by RADHA Farrell, ) Alcohol Use: Alcohol intake: never Drinks per week: 7 Substance Use: Substance use: never Others: Spiritual care concerns: No Smoking Status: Smoking status: Former smoker Tobacco type: cigarettes Second hand tobacco smoke exposure: Yes Smoking end date: 01/13/21 Smoking Pack-years: Smoking packs per day: 1 Smoking cigarettes per day: 20.0 Years smoked: 40 Smoking pack-years: 40.00 Meds Home Medications Medication Instructions Recorded Confirmed Type aspirin 81 mg PO DAILY 01/14/21 05/12/21 History carvedilol 12.5 mg PO BID 01/14/21 05/12/21 History omeprazole 40 mg PO DAILY 01/14/21 05/12/21 History simvastatin 80 mg PO HS 01/14/21 05/12/21 History albuterol sulfate 1 inh INHALATION QID PRN #8.5 g 01/17/21 05/12/21 Rx One-A-Day Men's 50 Plus 1 tablet PO DAILY 05/12/21 05/12/21 History Allergies Allergy/AdvReac Type Severity Reaction Status Date / Time No Known Allergies Allergy Verified 05/12/21 21:53 Results - Labs CBC & Chem 7: 05/13/21 05:21 05/13/21 05:21 Labs: Short CBC 05/13/21 Range/Units 05:21 WBC 35.3 H (4.5-10.0) K/mm3 Hgb 8.1 L (14.0-18.0) g/dL Hct 25.7 L (42.0-52.0) % Plt Count 1061 H (150-375) k/mm3 BMP 05/13/21 05:21 Sodium 128 L Potassium 4.6 Chloride 100 Carbon Dioxide 23 BUN 97 H D Creatinine 2.60 H Glucose 112 H Calcium 7.7 L Liver Function 05/13/21 Range/Units 05:21 Total Bilirubin 0.4 (0.2-1.3) mg/dL AST 23 (17-59) U/L ALT 12 (4-50) U/L Alkaline Phospha
[2021-05-13 17:29] LABS: Creatinine Urine 188.1 mg/dL; Total Protein Urine Random 15 mg/dL; Ur Ttl Prot Creatinine Ratio 0.08 mg/mg (0-0.20)
[2021-05-13] MEDS: SODIUM CHLORIDE 0.9% IV 1,000 ML 75 ML IV CONT (17:56)
[2021-05-13] MEDS: SODIUM CHLORIDE 0.9% IV 500 ML IV CONT (17:56)
[2021-05-13 18:00] LABS: Basophils Absolute Auto 0.1 K/mm3 (0.0-0.1); Basophils Percent Auto 0.2 % (0.2-1.2); Eosinophils Absolute Auto 3.2 K/mm3 (0-0.3); Eosinophils Percent Auto 9.2 % (0-4.4); Hematocrit 26.2 % (42.0-52.0); Hemoglobin 8.2 g/dL (14.0-18.0); Immature Granulocyte Absolute 1.49 K/mm3 (0.00-0.031); Immature Granulocyte Percent A 4.4 % (0-0.5); Lymphocytes Absolute Auto 1.84 K/mm3 (0.9-3.2); Lymphocytes Percent Auto 5.4 % (18.3-44.2); Mean Corpuscular HGB Conc 31.3 g/dl (32-36); Mean Corpuscular Hemoglobin 28.5 pg (26-34); Mean Platelet Volume 9.8 fl (7.4-10.4); Monocytes Absolute Auto 2.2 K/mm3 (0.1-0.6); Monocytes Percent Auto 6.6 % (2.6-8.5); Neutrophils Absolute Auto 25.4 K/mm3 (1.3-6.7); Neutrophils Percent Auto 74.2 % (45.5-73.1); Nucleated Red Blood Cells Absolute Auto 0.2 K/mm3 (0.0-0.012); Nucleated Red Blood Cells Perc 0.4 % (0.0-0.2); Platelet Count Result 1052 k/mm3 (150-375); Red Blood Count 2.88 M/mm3 (4.6-6.20); Red Cell Distribution Width 16.8 % (11.5-14.5); White Blood Count 34.2 K/mm3 (4.5-10.0)
[2021-05-13 18:08] LABS: Alanine Aminotransferase 13 U/L (4-50); Albumin Level 2.3 g/dL (3.5-5.1); Alkaline Phosphatase 62 U/L (38-126); Anion Gap 9 mmol/L (8-16); Aspartate Amino Transferase 25 U/L (17-59); Bilirubin,Total 0.4 mg/dL (0.2-1.3); Blood Urea Nitrogen 107 mg/dL (9-20); Calcium 7.7 mg/dL (8.4-10.2); Carbon Dioxide 22 mmol/L (22-30); Chloride 102 mmol/L (98-107); Estimated CRCL calculation 28 ml/min; Estimated Glomerular Filt Rate 24; Glucose 131 mg/dL (65-110); Potassium 4.6 mmol/L (3.4-5.0); Sodium 133 mmol/L (137-145)
[2021-05-13 18:11] LABS: Estimated CRCL calculation 29 ml/min; Estimated Glomerular Filt Rate 25
[2021-05-13 18:14] LABS: Total Protein Urine Random 15 mg/dL
[2021-05-13 18:16] LABS: Platelet Estimate Increased (Adequate)
[2021-05-13 18:23] LABS: Eosinophil Urine None Seen % (None Seen)
[2021-05-13 18:28] LABS: Potassium Urine Random 57.3 meq/L; Sodium Urine Random < 5 meq/L
[2021-05-13] MEDS: METOCLOPRAMIDE HCL INJ 10 MG/2 ML VIAL IV PUSH (19:06)
[2021-05-13] MEDS: CEFEPIME 0.5 GM in DEXTROSE 5% IN WATER 50 ML IVPB (20:22)
[2021-05-13] MEDS: SIMVASTATIN 20 MG TABLET 80 MG PO (20:31)
[2021-05-14] VITALS (22 sets, daily range): BP systolic 70–107; BP diastolic 42–85; PULSE 80–109; RESP 16–24; TEMP 36–36.6; O2SAT 86–100; BMI 37.0
[2021-05-14 05:51] LABS: Hematocrit 23.9 % (42.0-52.0); Hemoglobin 7.5 g/dL (14.0-18.0); Mean Corpuscular HGB Conc 31.4 g/dl (32-36); Mean Corpuscular Hemoglobin 28.6 pg (26-34); Mean Corpuscular Volume 91.2 fl (80-100); Mean Platelet Volume 9.7 fl (7.4-10.4); Platelet Count Result 963 k/mm3 (150-375); Red Blood Count 2.62 M/mm3 (4.6-6.20); Red Cell Distribution Width 16.9 % (11.5-14.5); White Blood Count 39.8 K/mm3 (4.5-10.0)
[2021-05-14] MEDS: HEPARIN SODIUM 5,000 UNITS/ML VIAL 5000 UNITS SUB-Q ×2 (05:57→12:59)
[2021-05-14 06:09] LABS: Alanine Aminotransferase 12 U/L (4-50); Albumin Level 2.2 g/dL (3.5-5.1); Alkaline Phosphatase 59 U/L (38-126); Anion Gap 7 mmol/L (8-16); Aspartate Amino Transferase 25 U/L (17-59); Bilirubin,Total 0.3 mg/dL (0.2-1.3); Blood Urea Nitrogen 108 mg/dL (9-20); Calcium 7.4 mg/dL (8.4-10.2); Carbon Dioxide 22 mmol/L (22-30); Chloride 102 mmol/L (98-107); Creatine Kinase 25 U/L (55-170); Estimated CRCL calculation 29 ml/min; Estimated Glomerular Filt Rate 25; Glucose 135 mg/dL (65-110); Magnesium 2.7 mg/dL (1.6-2.3); Potassium 4.5 mmol/L (3.4-5.0); Sodium 131 mmol/L (137-145)
--- NOTE | 2021-05-14 07:52 | WPDGIPROGNO ---
Progress Note: A&P Assessment and Plan (1) Abnormal CT scan: Code(s): R93.89 - Abnormal findings on diagnostic imaging of other specified body structures Status: Acute Assessment and Plan: CT scan suggest metastatic carcinoma uncertain primary. Appreciate Oncology input. Suspicion is that this is likely a lung primary. Await histology. Suggest follow-up with oncology post discharge. No additional testing anticipated unless desired by Oncology after biopsies are available. (2) Metastatic disease: Qualifiers: Area of secondary neoplastic involvement: unspecified site Qualified Code(s): C79.9 - Secondary malignant neoplasm of unspecified site Code(s): C79.9 - Secondary malignant neoplasm of unspecified site Status: Acute (3) COPD exacerbation: Code(s): J44.1 - Chronic obstructive pulmonary disease with (acute) exacerbation Status: Acute (4) CHF (congestive heart failure), NYHA class I: Code(s): I50.9 - Heart failure, unspecified Status: Chronic Subjective Date/time seen: 05/14/21 07:52 Patient reports good bowel movement yesterday. Tolerating diet. Anxious to go home. Had a good discussion with oncologist yesterday. Histology from axillary biopsy pending at this point. Review of Systems Review of Systems: All systems reviewed & are unremarkable except as noted in HPI and below Exam Narrative: Physical exam reveals patient to be alert. Comfortable at rest. HEENT exam reveals no icterus. Lungs are clear to auscultation and percussion. Heart is without murmur or extra sounds. Abdomen bowel sounds present soft nontender with no localized tenderness or masses. Objective Data Vital Signs Vital Signs: Vital Signs - 24 hr 05/13/21 08:00 05/13/21 09:22 05/13/21 12:00 Temperature Pulse Rate 96 97 Respiratory Rate Blood Pressure 112/62 Pulse Oximetry 94 05/13/21 12:18 05/13/21 13:56 05/13/21 16:00 Temperature 97.6 F Pulse Rate 100 90 88 Respiratory Rate 18 Blood Pressure 83/52 L Pulse Oximetry 95 05/13/21 20:00 05/13/21 20:25 05/14/21 00:00 Temperature 97.4 F L 97.2 F L Pulse Rate 95 89 91 Respiratory Rate 20 20 Blood Pressure 98/48 L 94/54 L Pulse Oximetry 94 94 92 05/14/21 04:00 05/14/21 04:07 Temperature 97.9 F Pulse Rate 88 94 Respiratory Rate 16 Blood Pressure 100/60 Pulse Oximetry 95 Intake/Output Intake/Output: Intake & Output 05/11/21 05/12/21 05/13/21 05/14/21 23:59 23:59 23:59 23:59 Intake Total 300 1350 710 600 Output Total 1250 1150 Balance 300 1350 -540 -550 Meds/Results Medications: Active Medications Generic Name Dose Route Start Last Admin Trade Name Freq PRN Reason Stop Dose Admin Albuterol 1 puff 05/13/21 10:31 Albuterol Sulfate (*Sp) Aerosol 1 Puff INHALATION QIDRT PRN shortness of breath or wheezing Aspirin 81 mg 05/13/21 08:00 05/13/21 12:10 Aspirin 81 Mg Chewable Tablet PO 81 mg DAILY@0800 BLAKE Administration Carvedilol 12.5 mg 05/13/21 11:00 05/13/21 12:18 Carvedilol 12.5 Mg Tablet PO 12.5 mg Q12HR BLAKE Administration Heparin Sodium (Porcine) 5,000 units 05/14/21 06:00 05/14/21 05:57 Heparin Sodium 5,000 Units/Ml Vial SUB-Q 5,000 units Q8HR BLAKE Administration Sodium Chloride 1,000 mls @ 75 mls/hr 05/13/21 16:50 05/13/21 20:32 Normal Saline Iv IV CONT 05/14/21 16:49 75 mls/hr .[id number] BLAKE Infusion Vancomycin HCl 1,750 mg in 500 mls @ 250 mls/hr 05/13/21 21:00 05/13/21 20:31 Vancomycin 1,750 Mg/D5w 500 Ml IVPB 250 mls/hr Q36H BLAKE Administration Cefepime HCl 0.5 gm/ Dextrose 50 mls @ 100 mls/hr 05/13/21 20:00 05/13/21 20:22 IVPB 100 mls/hr Q24H BLAKE Administration Metoclopramide HCl 10 mg 05/13/21 19:03 05/13/21 19:06 Metoclopramide Hcl Inj 10 Mg/2 Ml Vial IV PUSH 10 mg Q6HR PRN Administration Nausea And Vomiting Pantoprazole Sodium 40 mg 05/13/21 09
[2021-05-14] MEDS: PANTOPRAZOLE 40 MG TABLET PO (08:09)
[2021-05-14] MEDS: ASPIRIN 81 MG CHEWABLE TABLET PO (08:09)
[2021-05-14] MEDS: ALBUTEROL SULFATE (*SP) AEROSOL 1 PUFF INHALATION (08:24)
--- NOTE | 2021-05-14 08:32 | PM.IMPN ---
Progress Note: A&P Assessment and Plan (1) Metastatic disease: Qualifiers: Area of secondary neoplastic involvement: unspecified site Qualified Code(s): C79.9 - Secondary malignant neoplasm of unspecified site Code(s): C79.9 - Secondary malignant neoplasm of unspecified site Status: Acute Assessment and Plan: Unknown primary patient with abdominal pain and blood CT scan of the chest, abdominal and pelvis showing multiple metastasis lesion with unknown primary, patient with anemia most likely secondary to metastasis lesion, per record patient be seen by GI and Oncology and further recommendation to follow. Concern for lymphoma/leukemia patient has elevated lactic acid and renal failure Continue IV hydration Axillary lymph node biopsy on 05/13/2021 (2) S/P CABG x 3: Code(s): Z95.1 - Presence of aortocoronary bypass graft Status: Acute Assessment and Plan: Stable continue current treatment (3) CHF (congestive heart failure), NYHA class I: Code(s): I50.9 - Heart failure, unspecified Status: Chronic Assessment and Plan: I think patient is dehydrated CHF is chronic diastolic ejection fraction 60% Monitor closely for fluid overload n (4) Hypertension: Code(s): I10 - Essential (primary) hypertension Status: Chronic Assessment and Plan: Hold blood pressure medication as patient has episodes of hypotension Continue IV fluid (5) Thrombocytosis: Code(s): D75.839 - Thrombocytosis, unspecified Status: Acute Assessment and Plan: Patient with platelets above 1,000,000 Will defer to Heme-Onc for initiation of therapy (6) Tobacco dependence: Code(s): F17.200 - Nicotine dependence, unspecified, uncomplicated Status: Acute Assessment and Plan: Nicotine patch as needed (7) COPD exacerbation: Code(s): J44.1 - Chronic obstructive pulmonary disease with (acute) exacerbation Status: Acute Assessment and Plan: Resume inhalers Continue p.o. prednisone No change in sputum quality or production (8) Leukocytosis: Code(s): D72.829 - Elevated white blood cell count, unspecified Status: Acute Assessment and Plan: Patient has episode of hypotension concern for pneumonia Broad-spectrum IV antibiotic was started Continue on IV fluid IV antibiotics (9) Normochromic normocytic anemia: Code(s): D64.9 - Anemia, unspecified Status: Acute Assessment and Plan: Likely to be anemia of chronic disease Transfuse for hemoglobin below 7 (10) Diastolic congestive heart failure: Code(s): I50.30 - Unspecified diastolic (congestive) heart failure Status: Acute Assessment and Plan: Stable (11) Acute kidney injury: Code(s): N17.9 - Acute kidney failure, unspecified Status: Acute Assessment and Plan: Elevated BUN and creatinine Likely to be pre renal will hold Lasix Probably need gentle IV hydration Ultrasound shows mild bilateral hydronephrosis Pending nephrology eval Urine studies was sent (12) Hyponatremia with excess extracellular fluid volume: Code(s): E87.1 - Hypo-osmolality and hyponatremia Status: Acute Assessment and Plan: Could be multifactorial as patient with poor p.o. oral intake as well as taking loop diuretics also patient with congestive heart failure Will continue to monitor (13) Hypotension: Code(s): I95.9 - Hypotension, unspecified Status: Acute Assessment and Plan: Give IV fluid concern for dehydration pneumonia blood pressure medication reaction reaction to cancer (14) Abdominal distension: Code(s): R14.0 - Abdominal distension (gaseous) Status: Acute Assessment and Plan: Will check KUB concern for bowel obstruction Subjective Date/time seen: 05/14/21 08:32 Interval history: Patient presented to the hospital with abdominal CT scan of the abdomen showed
[2021-05-14] MEDS: ALBUMIN HUMAN 25% 25 GM/100 ML 100 ML IVPB (09:20)
[2021-05-14 10:02] LABS: Uric Acid 16.6 mg/dL (3.5-8.5)
[2021-05-14] MEDS: MIDODRINE HCL 10 MG TABLET PO ×3 (10:37→16:13)
--- NOTE | 2021-05-14 12:01 | P.PNNP_ITS ---
Progress Note: A&P Assessment and Plan (1) Acute kidney injury: Code(s): N17.9 - Acute kidney failure, unspecified Status: Acute Assessment and Plan: * normal baseline creatinine * history would suggest volume depletion/dehydration * urine electrolytes consistent with prerenal azotemia * renal ultrasound noted - mild hydronephrosis but todd catheter in place * continue trial of IVFs * follow I/Os and repeat labs (2) Hyponatremia: Code(s): E87.1 - Hypo-osmolality and hyponatremia Status: Acute Assessment and Plan: * presumably due to hypovolemia * sodium has improved with gentle IVFs * however, cannot deny the possibility of SIADH phenomenon due to underlying malignancy * follow trend of sodium (3) Metastatic disease: Qualifiers: Area of secondary neoplastic involvement: unspecified site Qualified Code(s): C79.9 - Secondary malignant neoplasm of unspecified site Code(s): C79.9 - Secondary malignant neoplasm of unspecified site Status: Acute Assessment and Plan: * as noted by imaging by admission * s/p biopsy of lymph node * Oncology consultation * follow-up on biopsy results (4) Hypertension: Code(s): I10 - Essential (primary) hypertension Status: Chronic Assessment and Plan: * some issues with relative hypotension on admision * doing better now * follow trend of hemodynamics (5) COPD exacerbation: Code(s): J44.1 - Chronic obstructive pulmonary disease with (acute) exacerbation Status: Acute Assessment and Plan: * on steroids and inhaler * follow respiratory status (6) Anemia: Qualifiers: Anemia type: unspecified type Qualified Code(s): D64.9 - Anemia, unspecified Code(s): D64.9 - Anemia, unspecified Status: Acute Assessment and Plan: * suspect related to DENNIS, acute illness, and underlying malignancy * follow H/H Will continue to follow. Subjective Date/time seen: 05/14/21 12:01 Tolerating oral intake but despite IVF resuscitation, renal function has not really improved that much; no apparent distress voiced at this time; seen by Oncology yesterday with recommendations noted; anxious for discharge; no issues/events overnight or earlier this AM. Exam Narrative: General: chronically ill-appearing male in NAD Heart: normal S1 and S2; no rub Lungs: decreased breath sounds Abdomen: soft, nontender, nondistended, positive bowel sounds Extremities: no cyanosis or clubbing; trace edema Skin: warm and dry Objective Data Vital Signs Vital Signs: Vital Signs Temp Pulse Resp BP Pulse Ox 05/14/21 12:00 92 05/14/21 08:07 92 05/14/21 08:00 36.4 C L 93 16 100/50 L 96 05/14/21 04:07 94 05/14/21 04:00 36.6 C 88 16 100/60 95 05/14/21 00:00 36.2 C L 91 20 94/54 L 92 05/13/21 20:25 89 94 05/13/21 20:00 36.3 C L 95 20 98/48 L 94 Intake/Output Intake/Output: Intake & Output 05/11/21 05/12/21 05/13/21 05/14/21 23:59 23:59 23:59 23:59 Intake Total 300 1350 710 600 Output Total 1250 1150 Balance 300 1350 -540 -550 Meds/Results Medications: Active Medications Generic Name Dose Route Start Last Admin
--- NOTE | 2021-05-14 12:01 | PM.PNNEP ---
Progress Note: A&P Assessment and Plan (1) Acute kidney injury: Code(s): N17.9 - Acute kidney failure, unspecified Status: Acute Assessment and Plan: normal baseline creatinine history would suggest volume depletion/dehydration urine electrolytes consistent with prerenal azotemia renal ultrasound noted - mild hydronephrosis but todd catheter in place continue trial of IVFs follow I/Os and repeat labs (2) Hyponatremia: Code(s): E87.1 - Hypo-osmolality and hyponatremia Status: Acute Assessment and Plan: presumably due to hypovolemia sodium has improved with gentle IVFs however, cannot deny the possibility of SIADH phenomenon due to underlying malignancy follow trend of sodium (3) Metastatic disease: Qualifiers: Area of secondary neoplastic involvement: unspecified site Qualified Code(s): C79.9 - Secondary malignant neoplasm of unspecified site Code(s): C79.9 - Secondary malignant neoplasm of unspecified site Status: Acute Assessment and Plan: as noted by imaging by admission s/p biopsy of lymph node Oncology consultation follow-up on biopsy results (4) Hypertension: Code(s): I10 - Essential (primary) hypertension Status: Chronic Assessment and Plan: some issues with relative hypotension on admision doing better now follow trend of hemodynamics (5) COPD exacerbation: Code(s): J44.1 - Chronic obstructive pulmonary disease with (acute) exacerbation Status: Acute Assessment and Plan: on steroids and inhaler follow respiratory status (6) Anemia: Qualifiers: Anemia type: unspecified type Qualified Code(s): D64.9 - Anemia, unspecified Code(s): D64.9 - Anemia, unspecified Status: Acute Assessment and Plan: suspect related to DENNIS, acute illness, and underlying malignancy follow H/H Will continue to follow. Subjective Date/time seen: 05/14/21 12:01 Tolerating oral intake but despite IVF resuscitation, renal function has not really improved that much; no apparent distress voiced at this time; seen by Oncology yesterday with recommendations noted; anxious for discharge; no issues/events overnight or earlier this AM. Exam Narrative: General: chronically ill-appearing male in NAD Heart: normal S1 and S2; no rub Lungs: decreased breath sounds Abdomen: soft, nontender, nondistended, positive bowel sounds Extremities: no cyanosis or clubbing; trace edema Skin: warm and dry Objective Data Vital Signs Vital Signs: Vital Signs Temp Pulse Resp BP Pulse Ox 05/14/21 12:00 92 05/14/21 08:07 92 05/14/21 08:00 36.4 C L 93 16 100/50 L 96 05/14/21 04:07 94 05/14/21 04:00 36.6 C 88 16 100/60 95 05/14/21 00:00 36.2 C L 91 20 94/54 L 92 05/13/21 20:25 89 94 05/13/21 20:00 36.3 C L 95 20 98/48 L 94 Intake/Output Intake/Output: Intake & Output 05/11/21 05/12/21 05/13/21 05/14/21 23:59 23:59 23:59 23:59 Intake Total 300 1350 710 600 Output Total 1250 1150 Balance 300 1350 -540 -550 Meds/Results Medications: Active Medications Generic Name Dose Route Start Last Admin Trade Name Freq PRN Reason Stop Dose Admin Albuterol 1 puff 05/13/21 10:31 05/14/21 08:24 Albuterol Sulfate (*Sp) Aerosol 1 Puff INHALATION 1 puff QIDRT PRN Administration shortness of breath or wheezing Aspirin 81 mg 05/13/21 08:00 05/14/21 08:09 Aspirin 81 Mg Chewable Tablet PO 81 mg DAILY@0800 BLAKE Administration Heparin Sodium (Porcine) 5,000 units 05/14/21 06:00 05/14/21 12:59 Heparin Sodium 5,000 Units/Ml Vial SUB-Q 5,000 units Q8HR BLAKE Administration Sodium Chloride 1,000 mls @ 75 mls/hr 05/13/21 16:50 05/13/21 20:32 Normal Saline Iv IV CONT 05/14/21 16:49 75 mls/hr .[id number] BLAKE Infusion Vancomycin HCl 1,750 mg in 500 mls @ 250 mls/hr 05/13/21 21:00
[2021-05-14 13:39] LABS: EDCOVIDSCREEN Negative (Negative)
[2021-05-14 15:00] LABS: Lactate Dehydrogenase 557 U/L (313-618)
[2021-05-14 15:07] LABS: Iron 20 ug/dL (49-181)
[2021-05-14 15:16] LABS: Percent Iron Saturation 10 % (20-50)
--- NOTE | 2021-05-14 15:46 | PM.CNGS ---
Assessment and Plan Assessment and plan (1) Partial small bowel obstruction: Code(s): K56.600 - Partial intestinal obstruction, unspecified as to cause Status: Acute Assessment and Plan: The patient was found to have metastatic disease on admission in the chest, abdomen, and pelvis. All imaging has been reviewed. At the time of his CT scan on admission, there was no dilated small bowel suggesting a small bowel obstruction. He had one episode of vomiting last night and his plain films today now show some mildly dilated small bowel, with possible partial small bowel obstruction vs ileus. On exam today, he is not having any abdominal, nausea, and has not had any more episodes of vomiting. We will allow the patient to try full liquids again today. If the nausea and vomiting returns, then we will need to consider placing an NG tube and making him NPO. We will continue to treat this conservatively at this time. Given the extensive metastatic disease and multiple co-morbidities, he would be a high risk for any surgical exploration. We will continue to follow him with serial abdominal exams and imaging. Thank you for allowing us to see the patient in consultation. (2) Metastatic disease: Qualifiers: Area of secondary neoplastic involvement: unspecified site Qualified Code(s): C79.9 - Secondary malignant neoplasm of unspecified site Code(s): C79.9 - Secondary malignant neoplasm of unspecified site Status: Acute Assessment and Plan: Found to have extensive metastatic disease of the chest, abdomen, and pelvis. Oncology following. S/p axillary lymph node biopsy, pathology pending. Tumor markers ordered. (3) Mass of pancreas: Code(s): K86.89 - Other specified diseases of pancreas Status: Acute Assessment and Plan: See plan above. (4) COPD exacerbation: Code(s): J44.1 - Chronic obstructive pulmonary disease with (acute) exacerbation Status: Acute (5) Leukocytosis: Code(s): D72.829 - Elevated white blood cell count, unspecified Status: Acute Assessment and Plan: [place] this is related to pneumonia and on broad-spectrum IV antibiotics. (6) Acute kidney injury: Code(s): N17.9 - Acute kidney failure, unspecified Status: Acute (7) Diastolic congestive heart failure: Code(s): I50.30 - Unspecified diastolic (congestive) heart failure Status: Acute (8) Thrombocytosis: Code(s): D75.839 - Thrombocytosis, unspecified Status: Acute Assessment and Plan: Platelets over 1,000,000. Hematology/Oncology has been consulted. Currently on subQ heparin. (9) CHF (congestive heart failure), NYHA class I: Code(s): I50.9 - Heart failure, unspecified Status: Chronic (10) Coronary artery disease: Code(s): I25.10 - Atherosclerotic heart disease of [place] coronary artery without angina pectoris Status: Acute Additional Plan I have discussed the patient's case and plan of care with Dr. Saeed. History of Present Illness Consult details Consult date: 05/14/21 Reason for consult: other (Partial small-bowel obstruction) Requesting physician: Carley Moreau M.A., MD Narrative: This is a 80-year-old male with a history of CHF, COPD, and coronary artery disease status post three-vessel CABG, who we have been asked to see for a partial small bowel obstruction. The patient presented to the emergency department on 05/11/2021 with multiple complaints including constipation, generalized abdominal pain, shortness of breath, a nonproductive cough, and a ground-level fall at home. Work-up in the ER showed no acute fractures from the fall. He had a chest x-ray that showed mild pulmonary edema and left basilar airspace opacities likely atelectasis. A CT scan of the chest, abdomen, and pelvis showed widespread metastatic disease of the chest, abdomen, and pelvis of unclear etiology. Labs revealed him to have leukocytosis w
[2021-05-14] MEDS: SODIUM CHLORIDE 0.9% IV 250 ML 30 ML IV CONT (17:22)
[2021-05-14] MEDS: METOCLOPRAMIDE HCL INJ 10 MG/2 ML VIAL IV PUSH (17:59)
--- NOTE | 2021-05-14 20:36 | PC.NURSE ---
Report called to MATTHEW Norton. All questions answered. Patient and family notified of room change. Waiting on housekeeping to clean the room for transfer.
[2021-05-14] MEDS: DOBUTamine 250 MG/D5W 250 ML 250 MG/250 ML BAG 18.09 MG IV CONT (21:44)
[2021-05-14] MEDS: SODIUM CHLORIDE 0.9% IV 1,000 ML 75 ML IV CONT (21:48)
[2021-05-14] MEDS: TUBING, BLOOD PLUM PUMP TUBING 1 EACH XX (23:11)
[2021-05-15] VITALS (10 sets, daily range): BP systolic 80–97; BP diastolic 42–72; PULSE 102–111; RESP 16–24; TEMP 36.1–36.4; O2SAT 95–100
[2021-05-15] MEDS: CEFEPIME 0.5 GM in DEXTROSE 5% IN WATER 50 ML IVPB (02:01)
[2021-05-15 05:40] LABS: Hematocrit 25.3 % (42.0-52.0); Mean Corpuscular HGB Conc 31.6 g/dl (32-36); Mean Corpuscular Volume 94.8 fl (80-100); Mean Platelet Volume 10.2 fl (7.4-10.4); Platelet Count Result 671 k/mm3 (150-375); Red Blood Count 2.67 M/mm3 (4.6-6.20); Red Cell Distribution Width 16.1 % (11.5-14.5); White Blood Count 36.8 K/mm3 (4.5-10.0)
[2021-05-15 05:57] LABS: Alanine Aminotransferase 13 U/L (4-50); Albumin Level 2.2 g/dL (3.5-5.1); Alkaline Phosphatase 52 U/L (38-126); Anion Gap 6 mmol/L (8-16); Aspartate Amino Transferase 30 U/L (17-59); Bilirubin,Total 0.4 mg/dL (0.2-1.3); Blood Urea Nitrogen 119 mg/dL (9-20); Calcium 7.3 mg/dL (8.4-10.2); Carbon Dioxide 21 mmol/L (22-30); Chloride 103 mmol/L (98-107); Estimated CRCL calculation 22 ml/min; Estimated Glomerular Filt Rate 18; Glucose 129 mg/dL (65-110); Magnesium 2.7 mg/dL (1.6-2.3); Potassium 5.1 mmol/L (3.4-5.0); Sodium 130 mmol/L (137-145)
[2021-05-15] MEDS: MIDODRINE HCL 10 MG TABLET PO (09:32)
[2021-05-15] MEDS: PANTOPRAZOLE SODIUM IV 40 MG VIAL IV PUSH (09:32)
--- NOTE | 2021-05-15 10:11 | PM.PNGS ---
Progress Note: A&P Assessment and Plan (1) Partial small bowel obstruction: Code(s): K56.600 - Partial intestinal obstruction, unspecified as to cause Status: Acute Assessment and Plan: Patient improved with NG tube decompression overnight. Bowels are moving. KUB showed normal bowel gas pattern. Will get a gastrografin UGI small bowel follow through today. If contrast moves through to the colon without obstruction, then we will plan on removing the NG tube and starting a liquid diet. (2) Metastatic disease: Qualifiers: Area of secondary neoplastic involvement: unspecified site Qualified Code(s): C79.9 - Secondary malignant neoplasm of unspecified site Code(s): C79.9 - Secondary malignant neoplasm of unspecified site Status: Acute Assessment and Plan: Found to have extensive metastatic disease of the chest, abdomen, and pelvis. Oncology following. S/p axillary lymph node biopsy, pathology pending. Tumor markers ordered. (3) Mass of pancreas: Code(s): K86.89 - Other specified diseases of pancreas Status: Acute Assessment and Plan: See plan above. (4) COPD exacerbation: Code(s): J44.1 - Chronic obstructive pulmonary disease with (acute) exacerbation Status: Acute (5) CHF (congestive heart failure), NYHA class I: Code(s): I50.9 - Heart failure, unspecified Status: Chronic (6) Hospice care: Code(s): Z51.5 - Encounter for palliative care Status: Acute Additional Plan I have discussed the plan of care with Dr. Saeed. Subjective Subjective Date/Time Seen: 05/15/21 09:11 Patient reports: no new complaints, feels better and afebrile Interval history: Patient seen and examined this morning. He appears more confused today and is disoriented to time and place. He also thought his NG tube, which was placed yesterday afternoon, had been there for days. He denies any abdominal pain, bloating, or nausea. He reports flatus and has had 3 bowel movements overnight. Visually, his work of breathing does look slightly more labored today. Since he was seen yesterday, he has also been moved to IMU with hypotension and tachycardia. He was started on a dobutamine drip. Review of Systems Review of Systems: ROS unobtainable: Yes unobtainable due to mental status Exam Const: General: alert, awake, in distress mild and respiratory and ill appearing Orientation/consciousness: oriented to person, No oriented to place, No oriented to time and confusion Resp: Effort & Inspection: labored Auscultation: rhonchi, wheezes expiratory wheezes and throughout and diminished lung sounds bilateral in the lower lung logan Cardio: Rate: tachycardic Rhythm: regular rhythm GI: Inspection: other (mildly distended) GI Palp: Yes Soft to palpation, Yes Tenderness to palpation present (GI) (very mild tenderness in LLQ), No Guarding due to palpation present (GI), Yes Palpable mass present (RUQ palpable mass) and No Rebound tenderness present Auscultation: normal bowel sounds Skin: General skin exam: pallor Neuro: General: moves all extremities and no focal motor deficits Extrem: General: no clubbing, cyanosis or edema Psych: Insight: Limited insight present (Psych) Judgement: Limited judgement present (Psych) Objective Data Vital Signs Vital Signs: Vital Signs - 24 hr 05/14/21 12:00 05/14/21 12:40 05/14/21 14:00 Temperature 97.6 F 97.6 F Pulse Rate 92 93 92 Respiratory Rate 16 16 Blood Pressure 100/58 L 100/56 L Pulse Oximetry 96 95 05/14/21 16:00 05/14/21 17:26 05/14/21 17:40 Temperature 97.6 F 96.8 F L 97.6 F Pulse Rate 90 102 H 106 H Respiratory Rate 16 20 22 H Blood Pressure 102/54 L 88/50 L 70/42 L Pulse Oximetry 95 96 94 05/14/21 18:20 05/14/21 18:30 05/14/21 18:40 Temperature 97.6 F Pulse Rate 102 H Respiratory Rate 22 H Blood Pressure 106/56 L Pulse Oximetry 86 L 95 99 05/14/21 19:41 05/14/21 20:00 05/14/21 2
--- NOTE | 2021-05-15 11:18 | P.PNNP_ITS ---
Progress Note: A&P Assessment and Plan (1) Acute kidney injury: Code(s): N17.9 - Acute kidney failure, unspecified Status: Acute Assessment and Plan: * normal baseline creatinine * history would suggest volume depletion/dehydration * urine electrolytes consistent with prerenal azotemia * renal ultrasound noted - mild hydronephrosis but todd catheter in place * Creatinine is a little worse today. Will have Urology evaluate to see if they think the hydronephrosis is significant. * Continue IV fluids. (2) Hyponatremia: Code(s): E87.1 - Hypo-osmolality and hyponatremia Status: Acute Assessment and Plan: * presumably due to hypovolemia * sodium is still low but about the same as yesterday. * May be related to malignancy. * Will check a TSH and a cortisol just to be sure (3) Metastatic disease: Qualifiers: Area of secondary neoplastic involvement: unspecified site Qualified Code(s): C79.9 - Secondary malignant neoplasm of unspecified site Code(s): C79.9 - Secondary malignant neoplasm of unspecified site Status: Acute Assessment and Plan: * as noted by imaging by admission * s/p biopsy of lymph node * Oncology consultation * Pathology pending (4) Hypertension: Code(s): I10 - Essential (primary) hypertension Status: Chronic Assessment and Plan: * Patient is actually hypotensive now. * Current blood pressure 97. It has ranged from 80-107 * He has diastolic dysfunction, not systolic dysfunction so blood pressure should not be from that. Perhaps this is related to his dehydration as well. * He is off his antihypertensives. He is on midodrine. (5) COPD exacerbation: Code(s): J44.1 - Chronic obstructive pulmonary disease with (acute) exacerbation Status: Acute Assessment and Plan: * on steroids and inhaler * follow respiratory status (6) Anemia: Qualifiers: Anemia type: unspecified type Qualified Code(s): D64.9 - Anemia, unspecified Code(s): D64.9 - Anemia, unspecified Status: Acute Assessment and Plan: * suspect related to DENNIS, acute illness, and underlying malignancy * Hemoglobin up to 8 today. Will follow and as long as he keeps rising we can hold off on erythropoietin. Will continue to follow. Subjective Date/time seen: 05/15/21 11:18 Interval history: Patient is alert He wants to go home today. He feels perfectly fine and has had family at home to take care of him. Discussed at length. His kidney function is worse so he really should not go home. The patient has no shortness of breath. He is lying flat in bed. No chest pain or belly pain. Exam Narrative: General: chronically ill-appearing male in NAD Heart: normal S1 and S2; no rub or gallop Lungs: decreased breath sounds Abdomen: soft, nontender, nondistended, positive bowel sounds Extremities: trace edema Skin: No rash Objective Data Vital Signs Vital Signs: Vital Signs - 24 hr 05/14/21 12:00 05/14/21 12:40 05/14/21 14:00 Temperature 36.4 C 36.4 C Pulse Rate 92 93 92 Respiratory Rate 16 16 Blood Pressure 100/58 L 100/56 L Pulse Oximetry 96 95 05/14/21 16:00 05/14/21 17:26 05/14/21 17:40 Temperature 36.4 C 36.0 C L 36.4 C Pulse Rate 90 102 H 106 H Respiratory Rate 16 20 22 H Blood Pressure 102
--- NOTE | 2021-05-15 11:18 | PM.PNNEP ---
Progress Note: A&P Assessment and Plan (1) Acute kidney injury: Code(s): N17.9 - Acute kidney failure, unspecified Status: Acute Assessment and Plan: normal baseline creatinine history would suggest volume depletion/dehydration urine electrolytes consistent with prerenal azotemia renal ultrasound noted - mild hydronephrosis but todd catheter in place Creatinine is a little worse today. Will have Urology evaluate to see if they think the hydronephrosis is significant. Continue IV fluids. (2) Hyponatremia: Code(s): E87.1 - Hypo-osmolality and hyponatremia Status: Acute Assessment and Plan: presumably due to hypovolemia sodium is still low but about the same as yesterday. May be related to malignancy. Will check a TSH and a cortisol just to be sure (3) Metastatic disease: Qualifiers: Area of secondary neoplastic involvement: unspecified site Qualified Code(s): C79.9 - Secondary malignant neoplasm of unspecified site Code(s): C79.9 - Secondary malignant neoplasm of unspecified site Status: Acute Assessment and Plan: as noted by imaging by admission s/p biopsy of lymph node Oncology consultation Pathology pending (4) Hypertension: Code(s): I10 - Essential (primary) hypertension Status: Chronic Assessment and Plan: Patient is actually hypotensive now. Current blood pressure 97. It has ranged from 80-107 He has diastolic dysfunction, not systolic dysfunction so blood pressure should not be from that. Perhaps this is related to his dehydration as well. He is off his antihypertensives. He is on midodrine. (5) COPD exacerbation: Code(s): J44.1 - Chronic obstructive pulmonary disease with (acute) exacerbation Status: Acute Assessment and Plan: on steroids and inhaler follow respiratory status (6) Anemia: Qualifiers: Anemia type: unspecified type Qualified Code(s): D64.9 - Anemia, unspecified Code(s): D64.9 - Anemia, unspecified Status: Acute Assessment and Plan: suspect related to DENNIS, acute illness, and underlying malignancy Hemoglobin up to 8 today. Will follow and as long as he keeps rising we can hold off on erythropoietin. Will continue to follow. Subjective Date/time seen: 05/15/21 11:18 Interval history: Patient is alert He wants to go home today. He feels perfectly fine and has had family at home to take care of him. Discussed at length. His kidney function is worse so he really should not go home. The patient has no shortness of breath. He is lying flat in bed. No chest pain or belly pain. Exam Narrative: General: chronically ill-appearing male in NAD Heart: normal S1 and S2; no rub or gallop Lungs: decreased breath sounds Abdomen: soft, nontender, nondistended, positive bowel sounds Extremities: trace edema Skin: No rash Objective Data Vital Signs Vital Signs: Vital Signs - 24 hr 05/14/21 12:00 05/14/21 12:40 05/14/21 14:00 Temperature 36.4 C 36.4 C Pulse Rate 92 93 92 Respiratory Rate 16 16 Blood Pressure 100/58 L 100/56 L Pulse Oximetry 96 95 05/14/21 16:00 05/14/21 17:26 05/14/21 17:40 Temperature 36.4 C 36.0 C L 36.4 C Pulse Rate 90 102 H 106 H Respiratory Rate 16 20 22 H Blood Pressure 102/54 L 88/50 L 70/42 L Pulse Oximetry 95 96 94 05/14/21 18:20 05/14/21 18:30 05/14/21 18:40 Temperature 36.4 C Pulse Rate 102 H Respiratory Rate 22 H Blood Pressure 106/56 L Pulse Oximetry 86 L 95 99 05/14/21 19:41 05/14/21 20:00 05/14/21 20:50 Temperature 36.3 C L 36.3 C L 36.5 C Pulse Rate 108 H 98 105 H Respiratory Rate 22 H 22 H 20 Blood Pressure 98/54 L 98/54 L 81/47 L Pulse Oximetry 100 100 98 05/14/21 21:25 05/14/21 21:44 05/14/21 22:00 Temperature 36.1 C L Pulse Rate 103 H 92 Respiratory Rate 20 Blood Pressure 85/58 L 85/58 L Pulse Oximetry 98 05/14
--- NOTE | 2021-05-15 11:43 | PM.DS ---
DS: Admitting Diagnosis Discharge Date 05/15/2021 Admitting Diagnosis Abdominal pain DS: Discharge Diagnosis Discharge Diagnosis (1) Metastatic disease: Qualifiers: Area of secondary neoplastic involvement: unspecified site Qualified Code(s): C79.9 - Secondary malignant neoplasm of unspecified site Code(s): C79.9 - Secondary malignant neoplasm of unspecified site Status: Acute Assessment and Plan: Unknown primary patient with abdominal pain and blood CT scan of the chest, abdominal and pelvis showing multiple metastasis lesion with unknown primary, patient with anemia most likely secondary to metastasis lesion, per record patient be seen by GI and Oncology and further recommendation to follow. 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 Status: Acute Assessment and Plan: Stable continue current treatment (3) CHF (congestive heart failure), NYHA class I: Code(s): I50.9 - Heart failure, unspecified Status: Chronic Assessment and Plan: CHF is chronic diastolic ejection fraction 60% Monitor closely for fluid overload n (4) Hypertension: Code(s): I10 - Essential (primary) hypertension Status: Chronic Assessment and Plan: Hold blood pressure medication as patient has episodes of hypotension patient required dobutamine drip and IV hydration patient decided to proceed with hospice and comfort care (5) Thrombocytosis: Code(s): D75.839 - Thrombocytosis, unspecified Status: Acute Assessment and Plan: Patient with platelets above 1,000,000 Will defer to Heme-Onc for initiation of therapy (6) Tobacco dependence: Code(s): F17.200 - Nicotine dependence, unspecified, uncomplicated Status: Acute Assessment and Plan: Nicotine patch as needed (7) COPD exacerbation: Code(s): J44.1 - Chronic obstructive pulmonary disease with (acute) exacerbation Status: Acute Assessment and Plan: Resume inhalers Continue home treatment (8) Leukocytosis: Code(s): D72.829 - Elevated white blood cell count, unspecified Status: Acute Assessment and Plan: Patient has episode of hypotension concern for pneumonia Broad-spectrum IV antibiotic was started Treated with IV fluid and broad-spectrum IV antibiotics (9) Normochromic normocytic anemia: Code(s): D64.9 - Anemia, unspecified Status: Acute Assessment and Plan: Likely to be anemia of chronic disease Transfuse for hemoglobin below 7 (10) Diastolic congestive heart failure: Code(s): I50.30 - Unspecified diastolic (congestive) heart failure Status: Acute Assessment and Plan: Stable (11) Acute kidney injury: Code(s): N17.9 - Acute kidney failure, unspecified Status: Acute Assessment and Plan: Elevated BUN and creatinine Likely to be pre renal will hold Lasix Probably need gentle IV hydration Ultrasound shows mild bilateral hydronephrosis nephrology eval Urine studies was sent Comfort care (12) Hyponatremia with excess extracellular fluid volume: Code(s): E87.1 - Hypo-osmolality and hyponatremia Status: Acute Assessment and Plan: Treated with IV hydration (13) Hypotension: Code(s): I95.9 - Hypotension, unspecified Status: Acute Assessment and Plan: Probably septic shock and hypovolemic shock treated with IV fluid and dobutamine (14) Abdominal distension: Code(s): R14.0 - Abdominal distension (gaseous) Status: Deleted Assessment and Plan: Related to bowel obstruction surgery was consulted procedure comfort care DS: Summary Hospital Course Hospital Course: Patient presented to the hospital with abdom
[2021-05-16 05:40] LABS: CA 19-9 <3 U/mL (<34)
[2021-05-17 15:17] LABS: Osmolality, Urine 369 mOsm/kg (50-1200)
[2021-05-21 15:27] LABS: CALR Exon 9 Mutation Not Detected (Not Detected); CSF3R Exon 14/17 Mutation Not Detected (Not Detected); Clinical Indication Not Provided; JAK2 Exon 12 Mutation Not Detected (Not Detected); JAK2 V617F Mutation Not Detected (Not Detected); MPL Exon 10 Mutation Not Detected (Not Detected)
== END 2021-05-15 13:23 | disposition hospice, home (50) | DRG 987 ==
LOC: ANHED 22:14 → ANH3MEDSUR 22:25 → ANH2MED 05-12 17:06 → ANHIMU 05-15 10:48 → ANH2MED 05-16 11:47 → ANHIMU 05-16 11:47
PROVIDERS: Family Medicine; Internal Medicine Gastroenterology; Internal Medicine Hematology & Oncology; Internal Medicine Nephrology; Admitting Provider Internal Medicine; Emergency Provider Nurse Practitioner; Visit Provider Internal Medicine
DX: C78.6 Secondary malignant neoplasm of retroperitoneum and peritoneum (principal); A41.9 Sepsis, unspecified organism; J18.9 Pneumonia, unspecified organism; R65.21 Severe sepsis with septic shock; R57.1 Hypovolemic shock; C78.1 Secondary malignant neoplasm of mediastinum; C77.3 Secondary and unspecified malignant neoplasm of axilla and upper limb lymph nodes; K56.600 Partial intestinal obstruction, unspecified as to cause; C34.32 Malignant neoplasm of lower lobe, left bronchus or lung; N17.9 Acute kidney failure, unspecified; I50.32 Chronic diastolic (congestive) heart failure; J44.1 Chronic obstructive pulmonary disease with (acute) exacerbation; J44.0 Chronic obstructive pulmonary disease with (acute) lower respiratory infection; E87.1 Hypo-osmolality and hyponatremia; N13.30 Unspecified hydronephrosis; I11.0 Hypertensive heart disease with heart failure; W19.XXXA Unspecified fall, initial encounter; E86.0 Dehydration; Z20.822 Contact with and (suspected) exposure to COVID-19; D75.839 Thrombocytosis, unspecified; D72.829 Elevated white blood cell count, unspecified; D63.0 Anemia in neoplastic disease; D63.8 Anemia in other chronic diseases classified elsewhere; S70.02XA Contusion of left hip, initial encounter; E78.5 Hyperlipidemia, unspecified; Z95.1 Presence of aortocoronary bypass graft; I25.2 Old myocardial infarction; Z87.891 Personal history of nicotine dependence; E66.9 Obesity, unspecified; Z68.37 Body mass index [BMI] 37.0-37.9, adult; K86.89 Other specified diseases of pancreas; Z51.5 Encounter for palliative care
CPT/HCPCS: 36415; 36430; 38505; 51702; 70450; 71045; 71046; 71250; 72170; 73552; 74018; 74176; 76775; 76942; 78580; 80053; 81001; 81050; 81219; 81270; 81402; 81403; 81479; 82378; 82550; 82565; 82570; 82607; 82728; 83540; 83550; 83605; 83615; 83690; 83735; 83880; 83935; 84133; 84145; 84156; 84300; 84484; 84550; 85025; 85027; 85610; 85730; 85999; 86301; 86850; 86880; 86900; 86901; 86922; 87040; 87426; 87804; 88305; 88342; 93005; 93306; 93970; 94640; 96361; 96365; 96368; 96372; 96375; 99285; A9270; A9540; C8929; C9113; C9803; G0378; J0456; J0692; J0696; J1250; J1644; J1650; J2765; J2930; J3370; J7030; J7040; J7050; P9016; P9047; Q9957; U0003; U0005